=== PATIENT | male | born 1960 | race Caucasian/White ===

== ENCOUNTER 2018-04-28 09:50 | Outpatient (CLI) | payer MEDICARE, SELFPAY ==
[2018-04-28 10:30] LABS: HCT 41.7 % (40.0-50.0); HGB 14.1 g/dL (13.5-17.5); Mean Corp. HGB Concentration 33.8 g/dL (32.0-36.0); Mean Corpuscular Volume 94.6 fL (80-95); Mean Platelet Volume 9.4 fL (8.0-11.0); Platelet Count 167 x1000/uL (130-400); RBC 4.41 m/cumm (4.50-6.00); RBC Distribution Width 12.2 % (11.8-14.1); White Blood Cell Count 5.33 k/cumm (4.4-10.8)
[2018-04-28 11:41] LABS: ALT 24 U/L (12-78); AST 19 U/L (15-37); Albumin 3.5 g/dL (3.4-5.0); Alkaline Phosphatase 61 U/L (46-116); Anion Gap 5.9 mmol/L (3-11); BUN 11 mg/dL (7-18); Bilirubin, Total 0.3 mg/dL (0.2-1.0); CO2 33.1 mmol/L (21.0-32.0); CREATININE 0.89 mg/dL (0.70-1.30); Calcium 8.9 mg/dL (8.5-10.1); Chloride 105 mmol/L (98-107); Cholesterol 149 mg/dL (50-200); Ferritin 160 ng/mL (8-388); Glucose 100 mg/dL (70-100); HDL Cholesterol 39 mg/dL (40-60); LDL CHOLESTEROL 97 mg/dL (<100); Potassium 4.7 mmol/L (3.5-5.1); Sodium 144 mmol/L (136-145); Total Protein 6.5 g/dL (6.4-8.2); Triglyceride 65 mg/dL (30-150)
== END 2018-04-28 10:10 ==
PROVIDERS: Visit Provider Nurse Practitioner
DX: E78.5 Hyperlipidemia, unspecified (principal); R71.8 Other abnormality of red blood cells; I10 Essential (primary) hypertension; G25.81 Restless legs syndrome
CPT/HCPCS: 36415; 80053; 80061; 83721; 85027; 82728

== ENCOUNTER 2018-06-27 10:15 | Emergency (ER) | payer OTHER, SELFPAY ==
[2018-06-27 10:28] VITALS: BP 134/73; PULSE 55; RESP 16; TEMP 37; O2SAT 96
[2018-06-27 11:10] LABS: Bilirubin Negative (Negative); Blood Trace-intact (Negative); Clarity Clear; Glucose Negative (Negative); Ketones Negative (Negative); Leukocyte Esterase Negative (Negative); Nitrite Negative (Negative); Urobilinogen 0.2 EU/dL (Up TO 0.2)
[2018-06-27 11:22] LABS: Bacteria Negative HPF (Negative); C & S Indicated? No; Casts Negative LPF (Negative); Crystals Few Amorphous HPF (Negative); Epithelial Cells Rare HPF (Negative); Mucus Negative (Negative); Other Cells Rare Renal (Negative); WBC Negative HPF (0-5)
--- NOTE | 2018-06-27 11:35 | W.ED.GENAD ---
Discharge Plan Disposition Patient Disposition: HOME Discharge Details Chief Complaint: Abd Prob Clinical Impression: Hernia, inguinal, right, Hematuria Primary Care Provider: None,None ED Provider: Raz Boone Home Meds and New Rx's Prescriptions: Continued gabapentin 800 mg Tablet 800 mg PO TID RF: 0 baclofen 10 mg Tablet 20 mg PO RF: 0 aspirin 81 mg Tablet,Chewable 1 tab PO DAILY RF: 0 pramipexole 0.75 mg Tablet 0.75 mg PO DAILY RF: 0 Discharge Instructions Instructions: Inguinal Hernia (ED), Hematuria (ED) Additional Instructions: You had a small fat-containing inguinal hernia on the right side. Please follow-up with general surgery. Call today to arrange follow-up. You had a small amount of blood in your urine. Please contact your primary care physician to arrange follow-up. You may need additional testing. Return to the ER for any worsening or new concerning symptoms. Referrals: Rubi Abdullahi MD [ [facility] STAFF PHYSICIAN] - Medical Decision Making 11:39 --58-year-old male presents with 3-4 days of right lower abdomen and groin pain, recent bulging in his right groin. Tender palpation right lower quadrant over McBurney's point. He does have a direct inguinal hernia that is present with Valsalva and cough only. Plan to CT abdomen pelvis to assess for acute surgical pathology. 13:52 --CT of the abdomen and pelvis interpreted by radiology: Normal appendix, no acute process, small fat-containing right inguinal hernia noted. Labs reviewed and nondiagnostic. Plan is to have the patient follow-up with general surgery. Encouraged him to return for any worsening or new concerning symptoms. HPI General Mode of arrival: ambulatory. Date/Time Provider Initiated Documentation: 06/27/18 11:05. Limitations to Documentation: no limitations. Information obtained by: patient and family. HPI Narrative: 58yo m presents with chief complaint of abdominal pain. Patient notes pain in his right lower abdomen and groin for the past 3-4 days. Pain has been severe and is currently mild. Pain feels like an ache. Patient's noted a bulge in his right groin a couple days ago and is concerned about hernia. He has had associated anorexia. He did have some vomiting a few nights ago. No loose stool, no dysuria, no hematuria. No fever. Related Data Home Medications Medication Instructions Recorded Confirmed aspirin 1 tab PO DAILY 06/27/18 06/27/18 baclofen 20 mg PO 06/27/18 gabapentin 800 mg PO TID 06/27/18 06/27/18 pramipexole 0.75 mg PO DAILY 06/27/18 06/27/18 Allergies Allergy/AdvReac Type Severity Reaction Status Date / Time phenobarbital Allergy Unverified 06/27/18 10:32 bees Allergy Uncoded 06/27/18 10:32 General Stated Complaint: Abd Prob QUINN: 3 Review of Systems Review of Systems All systems reviewed & are unremarkable except as noted in HPI and below Gastrointestinal Reports abdominal pain and Reports nausea Genitourinary Reports as per HPI PFSH Social History Smoking/Tobacco Use Status: Never Exam Const General: cooperative and no acute distress HENMT Head: normocephalic and atraumatic Mouth: moist mucous membranes Eyes Conjunctivae: normal conjunctivae Sclera: normal sclerae EOM: EOM intact bilaterally Neck Neck: trachea midline and supple Resp Auscultation: clear to auscultation bilaterally, no rales, no rhonchi and no wheezes Cardio Jugular venous pressure: no JVD Rate: regular rate and not tachycardic Rhythm: regular rhythm GI Inspection: no visible herniation Palpation: soft, not firm, no guarding, no masses, not rigid and tender in the RLQ and suprapubicly (Right) Auscultation: normal bowel sounds Other: Right direct inguinal hernia on coughing that reduces spontaneously, no tenderness inguinal canal Skin General skin exam: no rashes or lesions noted Neuro General: alert, awake, oriented x3 and tone normal Extrem General: no edema Psych Appearance: grossly normal Mental Status: mental status grossly normal Speech and Movement: speech and movement normal Course Vital Signs Temperature 37 C 06/27/18 10:28 Pulse 55 L 06/27/18 10:28 Respiratory Rate 16 06/27/18 10:28 Blood Pressure 134/73 06/27/18 10:28 Pulse Oximetry 96 06/27/18 10:28 Temperature 37 C 06/27/18 10:28 Temperature Source Skin 06/27/18 10:28 Pulse 55 L 06/27/18 10:28 Respiratory Rate 16 06/27/18 10:28 Respiratory Effort Non-Labored 06/27/18 10:28 Blood Pressure 134/73 06/27/18 10:28 Blood Pressure Position Sitting 06/27/18 10:28 Pulse Oximetry 96 06/27/18 10:28 Oxygen Delivery Method Room Air 06/27/18 10:28 Oxygen Flow Rate 0 06/27/18 10:28 Pain Level 6 06/27/18 10:28 Lab/Test Results Lab/Test Results: Laboratory Tests Range/Units 06/27/18 11:05 Urine Color (Yellow) Yellow Urine Clarity Clear Urine pH (5-8) 7.0 Ur Specific [place] (1.005-1.025) 1.020 Urine Protein (Negative) mg/dL Negative Urine Ketones (Negative) mg/dL Negative Urine Blood (Negative) Trace-intact H Urine Nitrite (Negative) Negative Urine Bilirubin (Negative) Negative Urine Urobilinogen (Up TO 0.2) EU/dL 0.2 Ur Leukocyte Esterase (Negative) Negative Urine RBC (0-2) 3-5 H Urine WBC (0-5) HPF Negative Ur Epithelial Cells (Negative) HPF Rare Urine Crystals (Negative) HPF Few amorphous Urine Bacteria (Negative) HPF Negative Urine Casts (Negative) LPF Negative Urine Mucus (Negative) Negative Urine Other (Negative) Rare renal Ur Culture Indicated? No Urine Glucose (Negative) mg/dL Negative
--- NOTE | 2018-06-27 11:40 | ED.GENADUL_ITS ---
Discharge Plan Disposition Patient Disposition: HOME Discharge Details Chief Complaint: Abd Prob Clinical Impression: Hernia, inguinal, right, Hematuria Primary Care Provider: None,None ED Provider: Raz Boone Home Meds and New Rx's Prescriptions: Continued gabapentin 800 mg Tablet 800 mg PO TID RF: 0 baclofen 10 mg Tablet 20 mg PO RF: 0 aspirin 81 mg Tablet,Chewable 1 tab PO DAILY RF: 0 pramipexole 0.75 mg Tablet 0.75 mg PO DAILY RF: 0 Discharge Instructions Instructions: Inguinal Hernia (ED), Hematuria (ED) Additional Instructions: You had a small fat-containing inguinal hernia on the right side. Please follow- up with general surgery. Call today to arrange follow-up. You had a small amount of blood in your urine. Please contact your primary care physician to arrange follow-up. You may need additional testing. Return to the ER for any worsening or new concerning symptoms. Referrals: Rubi Abdullahi MD [ [facility] STAFF PHYSICIAN] - Medical Decision Making 11:39 --58-year-old male presents with 3-4 days of right lower abdomen and groin pain, recent bulging in his right groin. Tender palpation right lower quadrant over McBurney's point. He does have a direct inguinal hernia that is present with Valsalva and cough only. Plan to CT abdomen pelvis to assess for acute surgical pathology. 13:52 --CT of the abdomen and pelvis interpreted by radiology: Normal appendix, no acute process, small fat-containing right inguinal hernia noted. Labs reviewed and nondiagnostic. Plan is to have the patient follow-up with general surgery. Encouraged him to return for any worsening or new concerning symptoms. HPI General Mode of arrival: ambulatory . Date/Time Provider Initiated Documentation: 06/27/18 11:05 . Limitations to Documentation: no limitations . Information obtained by: patient and family . HPI Narrative: 58yo m presents with chief complaint of abdominal pain. Patient notes pain in his right lower abdomen and groin for the past 3-4 days. Pain has been severe and is currently mild. Pain feels like an ache. Patient's noted a bulge in his right groin a couple days ago and is concerned about hernia. He has had associated anor exia. He did have some vomiting a few nights ago. No loose stool, no dysuria, no hematuria. No fever. Related Data Home Medications Medication Instructions Recorded Confirmed aspirin 1 tab PO DAILY 06/27/18 06/27/18 baclofen 20 mg PO 06/27/18 gabapentin 800 mg PO TID 06/27/18 06/27/18 pramipexole 0.75 mg PO DAILY 06/27/18 06/27/18 Allergies Allergy/AdvReac Type Severity Reaction Status Date / Time phenobarbital Allergy Unverified 06/27/18 10:32 bees Allergy Uncoded 06/27/18 10:32 General Stated Complaint: Abd Prob QUINN: 3 Review of Systems Review of Systems All systems reviewed & are unremarkable except as noted in HPI and below Gastrointestinal Reports abdominal pain and Reports nausea Genitourinary Reports as per HPI PFSH Social History Smoking/Tobacco Use Status: Never Exam Const General: cooperative and no acute distress HENMT Head: normocephalic and atraumatic Mouth: moist mucous membranes Eyes Conjunctivae: normal conjunctivae Sclera: normal sclerae EOM: EOM intact bilaterally Neck Neck: trachea midline and supple Resp Auscultation: clear to auscultation bilaterally, no rales, no rhonchi and no wheezes Cardio Jugular venous pressure: no JVD Rate: regular rate and not tachycardic Rhythm: regular rhythm GI Inspection: no visible herniation Palpation: soft, not firm, no guarding, no masses, not rigid and tender in the RLQ and suprapubicly (Right) Auscultation: normal bowel sounds Other: Right direct inguinal hernia on coughing that reduces spontaneously, no tenderness inguinal canal Skin General skin exam: no rashes or lesions noted Neuro General: alert, awake, oriented x3 and tone normal Extrem General: no edema Psych Appearance: grossly normal Mental Status: mental status grossly normal Speech and Movement: speech and movement normal Course Vital Signs Temperature 37 C 06/27/18 10:28 Pulse 55 L 06/27/18 10:28 Respiratory Rate 16 06/27/18 10:28 Blood Pressure 134/73 06/27/18 10:28 Pulse Oximetry 96 06/27/18 10:28 Temperature 37 C 06/27/18 10:28 Temperature Source Skin 06/27/18 10:28 Pulse 55 L 06/27/18 10:28 Respiratory Rate 16 06/27/18 10:28 Respiratory Effort Non-Labored 06/27/18 10:28 Blood Pressure 134/73 06/27/18 10:28 Blood Pressure Position Sitting 06/27/18 10:28 Pulse Oximetry 96 06/27/18 10:28 Oxygen Delivery Method Room Air 06/27/18 10:28 Oxygen Flow Rate 0 06/27/18 10:28 Pain Level 6 06/27/18 10:28 Lab/Test Results Lab/Test Results: Laboratory Tests Range/Units 06/27/18 11:05 Urine Color (Yellow) Yellow Urine Clarity Clear Urine pH (5-8) 7.0 Ur Specific [place] (1.005-1.025) 1.020 Urine Protein (Negative) mg/dL Negative Urine Ketones (Negative) mg/dL Negative Urine Blood (Negative) Trace-intact H Urine Nitrite (Negative) Negative Urine Bilirubin (Negative) Negative Urine Urobilinogen (Up TO 0.2) EU/dL 0.2 Ur Leukocyte Esterase (Negative) Negative Urine RBC (0-2) 3-5 H Urine WBC (0-5) HPF Negative Ur Epithelial Cells (Negative) HPF Rare Urine Crystals (Negative) HPF Few amorphous Urine Bacteria (Negative) HPF Negative Urine Casts (Negative) LPF Negative Urine Mucus (Negative) Negative Urine Other (Negative) Rare renal Ur Culture Indicated? No Urine Glucose (Negative) mg/dL Negative
--- NOTE | 2018-06-27 11:54 | DI.CT_ITS ---
SYMPTOMS/DIAGNOSIS: RIGHT LOWER QUADRANT ABDOMINAL PAIN X 4 DAYS, ? INGUINAL HERNIA, ? APPENDICITIS CT SCAN OF THE ABDOMEN AND PELVIS: CT scan of the abdomen and pelvis was performed following the uneventful administration of intravenous and oral contrast material. There are no priors for comparison. Mild dependent atelectatic changes are seen in the lung bases. The liver is normal in size and appearance. No hepatic mass is seen. The portal and superior mesenteric veins are patent. The gallbladder is negative. No biliary or ductal dilatation is seen. No pancreatic mass or peripancreatic fluid collections are seen. The adrenal gland and spleen are unremarkable. The kidneys show normal enhancement. No solid mass or obstruction is seen. The urinary bladder is intact. The reproductive organs are unremarkable. There is atherosclerosis of the abdominal aorta, but no aneurysmal dilatation is present. No significant abdominal or pelvic adenopathy, ascites or pneumoperitoneum is present. The bowel shows no evidence of obstruction or inflammation. There is a normal appendix in the right lower quadrant. There is a fat- containing right inguinal hernia. Multilevel degenerative changes are seen in the spine resulting in central spinal canal stenosis at L3-4 and L4-L5. IMPRESSION: No evidence of an acute abdomen. Normal appendix. The findings were discussed with the Emergency Department on the date of the examination.
[2018-06-27] MEDS: Lactated Ringers 1,000 ML 125 ML IV (12:18)
[2018-06-27 12:24] LABS: Absolute Basophil Count 0.01 k/cumm (0.0-0.2); Absolute Eosinophil Count 0.08 k/cumm (0.0-0.7); Absolute Monocyte Count 0.39 k/cumm (0.11-0.7); Absolute Neutrophil Count 2.57 k/cumm (1.2-6.7); Basophils % 0.2; Eosinophils % 1.8; HCT 39.6 % (40.0-50.0); HGB 13.4 g/dL (13.5-17.5); Mean Corp. HGB Concentration 33.8 g/dL (32.0-36.0); Mean Corpuscular Hemoglobin 31.7 pg (27.0-33.0); Mean Corpuscular Volume 93.6 fL (80-95); Mean Platelet Volume 9.4 fL (8.0-11.0); Monocytes % 8.6; Neutrophils % 56.4; Platelet Count 131 x1000/uL (130-400); RBC 4.23 m/cumm (4.50-6.00); RBC Distribution Width 12.2 % (11.8-14.1); White Blood Cell Count 4.55 k/cumm (4.4-10.8)
[2018-06-27 12:39] LABS: Lactate 0.9 mmol/L (0.6-1.4)
[2018-06-27 12:40] LABS: ALT 23 U/L (12-78); AST 18 U/L (15-37); Albumin 3.3 g/dL (3.4-5.0); Alkaline Phosphatase 58 U/L (46-116); Anion Gap 5.2 mmol/L (3-11); BUN 9 mg/dL (7-18); Bilirubin, Total 0.3 mg/dL (0.2-1.0); CO2 31.8 mmol/L (21.0-32.0); CREATININE 0.85 mg/dL (0.70-1.30); Chloride 106 mmol/L (98-107); Glucose 95 mg/dL (70-100); Lipase 135 U/L (73-393); Sodium 143 mmol/L (136-145); Total Protein 6.7 g/dL (6.4-8.2)
[2018-06-27] MEDS: Omnipaque 350 MG/ML 100 ML BTL IV (13:36)
[2018-06-27 14:30] VITALS: BP 134/73; PULSE 55; RESP 16; O2SAT 96
== END 2018-06-27 14:32 | disposition home or self-care (01) ==
PROVIDERS: Emergency Provider Student in an Organized Health Care Education/Training Program
DX: K40.90 Unilateral inguinal hernia, without obstruction or gangrene, not specified as recurrent (principal); R31.9 Hematuria, unspecified
CPT/HCPCS: 36415; 80053; 83690; 96360; 96361; 99285; 74177; 81003; 81015; 83605; 85025; 99284; J3490

== ENCOUNTER 2018-07-25 09:41 | Inpatient (IN) | payer OTHER, SELFPAY ==
[2018-07-25] VITALS (30 sets, daily range): BP systolic 101–130; BP diastolic 54–71; PULSE 61–100; RESP 4–118; TEMP 36.5–39; O2SAT 88–99
--- NOTE | 2018-07-25 09:57 | NUR.NOTE ---
pt has has fever of 101+ for past 48 hrs and nausea. pt has not taken any med to alleviate this. NOTE pt has history of stroke with left sided weakness Nursing Note:
--- NOTE | 2018-07-25 10:24 | W.ED.GENAD ---
Discharge Plan Disposition Patient Disposition: [facility] INPATIENT Condition: Serious Discharge Details Chief Complaint: Fever Clinical Impression: Influenza, Hypoxia Reason For Visit: INFLUENZA A, ACUTE BRONCHITIS/COPD,HYPOXIA Admit Date/Time: 07/25/18 12:36 Admit Provider: Reema Saucedo Attending Provider: Reema Saucedo Primary Care Provider: None,None ED Provider: Dipak Murillo [facility] Course Hospital Course: Mr Gil is a 58 year old male with PMHx of CAD s/p MO/stent in 1997 and CABG x 3 in 2009 (in [place]), as well as prior CVA with residual L-sided weakness, hypertension, hyperlipidemia, who has an about 80 pack-year smoking history and continues to smoke, who was admitted to [facility] on 07/25/18 with an acute exacerbation of likely COPD (previously not diagnosed) due to Influenza A infection. He was initially mildly hypoxic, but this has quickly resolved. He was initiated on IV antibiotics for suspected bacterial bronchitis component of his presentation (azithromycin, rocephin, currently on Day 2), tamiflu, IV solumedrol, nebs. From the respiratory stand point, the patient improved rapidly - however, he reported an episode of lung pain to nursing this morning soon after receiving a nebulizer treatment. The patient now admits to also having an episode of this pain last night. His EKG reveals a RBBB with no priors available for comparison in our system. His troponin this morning was 0.02. His troponin rechecked at 14:45 is now 0.75. The patient is now chest pain free. He was loaded with asa, therapeutic lovenox. Case was discussed with [facility] cardiology, who recommended that the patient also be loaded with plavix. He was accepted in transfer by [facility] cardiology Dr Azar for anticipated cardiac cath. We appreciate the help of our [facility] colleagues and wish the patient well! Discharge Instructions Instructions: Acute Coronary Syndrome (DC), Influenza (DC), Acute Bronchitis (GEN), COPD (Chronic Obstructive Pulmonary Disease) (DC) Additional Instructions: You must stop smoking! Forms: Nursing Discharge Form Referrals: Giovana Brothers [ NON-[facility] STAFF PHYSICIAN] - 08/11/18 10:15 am Discharge Data Discharge Date/Time-TO BE ENTERED AT DEPARTURE: 07/25/18 13:00 Medical Decision Making Patient presenting the emergency department for chief complaint of fever and cough. Patient states that this started yesterday along with some nasal congestion, sore throat, and generalized body aches. Patient does state his significant other also has similar symptoms. Patient is ill in appearance, hypoxic on room air, febrile with temp of 39, and tachycardic. Patient has no signs of hypotension. Plan to check labs, give IV fluids, albuterol, chest x-ray and blood cultures. Concern for pneumonia versus influenza. Review of labs show no significant leukocytosis otherwise nondiagnostic labs but of notation is that patient is influenza positive. Chest x-ray reviewed along with speaking to radiologist and shows no acute infiltrates or infectious process. Patient reassessed and removed from oxygen that staff development coordinator placed on patient due to hypoxia. Patient had no improvement of hypoxia and remains 88% on room air. Patient has no primary care provider to follow-up with and I feel this is concerning that patient should be admitted. Tamiflu was ordered. Spoke with Dr. Saucedo who agreed to admit patient and had recommendation of IV Solu-Medrol x1 and for patient to be admitted HPI General Mode of arrival: ambulatory. Date/Time Provider Initiated Documentation: 07/25/18 10:00. Limitations to Documentation: no limitations. Information obtained by: RN notes reviewed. History of Present Illness 58 year old M presents to the emergency department with the chief complaint of fever, cough , described as moderate, with intensity rated at 8. Quality is described as aching (Generalized body aches), Patient started experiencing this day(s) (1) and it has been constant. No relieving factors improve symptom(s), No exacerbating factors reported . Patient did receive the following treatments prior to arrival, none Related Data Home Medications Medication Instructions Recorded Confirmed aspirin 1 tab PO DAILY 06/27/18 07/25/18 pramipexole 0.75 mg PO HS 06/27/18 07/25/18 atorvastatin 80 mg PO HS 07/25/18 07/25/18 baclofen 20 mg PO TID 07/25/18 07/25/18 gabapentin 300 mg PO TID 07/25/18 07/25/18 metoprolol tartrate [Lopressor] 50 mg PO BID 07/25/18 07/25/18 sertraline 200 mg PO DAILY 07/25/18 07/25/18 acetaminophen [Tylenol] 650 mg PO Q4H PRN PRN #0 tab 07/26/18 albuterol sulfate 2.5 mg UPD Q2H PRN PRN #0 ml 07/26/18 alum-mag hydroxide-simeth [Mag-Al 30 ml PO Q2H PRN PRN #0 ml 07/26/18 Plus] azithromycin [Zithromax] 500 mg IVPB Q24H #0 ea 07/26/18 benzonatate 100 mg PO TID #0 cap 07/26/18 docusate sodium [Colace] 100 mg PO TID PRN PRN #0 cap 07/26/18 enoxaparin 80 mg SUBCUT Q12H #0 ml 07/26/18 guaifenesin [Mucinex] 600 mg PO BID #0 tab 07/26/18 ipratropium-albuterol 3 ml UPD Q6H #0 ml 07/26/18 methylprednisolone sod suc(PF) 60 mg IVP BID #0 ea 07/26/18 [Solu-Medrol (PF)] nicotine 21 mg TRANSDERMAL DAILY #0 ea 07/26/18 oseltamivir [Tamiflu] 75 mg PO BID #0 cap 07/26/18 pantoprazole 40 mg PO DAILY@0730 #0 tab 07/26/18 polyethylene glycol 3350 17 g PO DAILY PRN PRN #0 ea 07/26/18 Previous Rx's Medication Instructions Recorded acetaminophen [Tylenol] 650 mg PO Q4H PRN PRN #0 tab 07/26/18 albuterol sulfate 2.5 mg UPD Q2H PRN PRN #0 ml 07/26/18 alum-mag hydroxide-simeth [Mag-Al 30 ml PO Q2H PRN PRN #0 ml 07/26/18 Plus] azithromycin [Zithromax] 500 mg IVPB Q24H #0 ea 07/26/18 benzonatate 100 mg PO TID #0 cap 07/26/18 docusate sodium [Colace] 100 mg PO TID PRN PRN #0 cap 07/26/18 enoxaparin 80 mg SUBCUT Q12H #0 ml 07/26/18 guaifenesin [Mucinex] 600 mg PO BID #0 tab 07/26/18 ipratropium-albuterol 3 ml UPD Q6H #0 ml 07/26/18 methylprednisolone sod suc(PF) 60 mg IVP BID #0 ea 07/26/18 [Solu-Medrol (PF)] nicotine 21 mg TRANSDERMAL DAILY #0 ea 07/26/18 oseltamivir [Tamiflu] 75 mg PO BID #0 cap 07/26/18 pantoprazole 40 mg PO DAILY@0730 #0 tab 07/26/18 polyethylene glycol 3350 17 g PO DAILY PRN PRN #0 ea 07/26/18 Allergies Allergy/AdvReac Type Severity Reaction Status Date / Time phenobarbital Allergy Unverified 07/25/18 10:00 bees Allergy Uncoded 07/25/18 10:00 General Stated Complaint: Fever QUINN: 3 Review of Systems Constitutional Reports body ache(s), Reports chills, Reports fever(s), Denies headache(s) and Reports malaise Eyes Denies eye discharge ENT Reports as per HPI, Denies ear discharge, Denies otalgia, Denies headache(s), Reports nasal congestion, Reports nasal discharge, Denies neck pain, Reports sinus pain, Reports sinus pressure, Reports sore throat and Denies throat swelling Cardiovascular Denies chest pain and Reports dyspnea Respiratory Reports cough and Reports dyspnea Gastrointestinal Denies abdominal pain, Denies diarrhea and Denies vomiting Musculoskeletal Denies joint swelling and Denies neck pain Integumentary/Breasts Denies rash Neurologic Denies headache(s) Allergic/Immunologic Denies throat swelling PFSH Medical History Ambulatory dysfunction (Chronic) CAD (coronary artery disease) (Chronic) CVA (cerebral vascular accident) (Chronic) Carotid stenosis (Chronic) Epilepsy (Chronic) History of heart attack (Chronic) Hypertension (Chronic) Tobacco abuse (Chronic) Surgical History H/O colonoscopy (Chronic) History of cardiac cath (Chronic) History of left-sided carotid endarterectomy (Chronic) Hx of tonsillectomy (Chronic) S/P CABG x 3 (Chronic) Social History Smoking/Tobacco Use Status: Current every day tobacco type: cigarettes quit status: not considering quitting counseling given: provider counseling alcohol intake: never substance use type: does not use Exam Const General: cooperative Orientation: alert and awake [facility] Head: normal to inspection, normocephalic and atraumatic Ears: hearing grossly normal bilaterally, TM's normal bilaterally, mastoids normal and TM abnormal bulging bilaterally, dull bilaterally and with loss of landmarks bilaterally General nose exam: external nose normal Face and sinus: normal facial exam, sinuses nontender and no erythema Mouth: oral mucosae normal, no drooling, no muffled voice and no trismus Throat: posterior oropharynx normal, tonsils normal and uvula midline Neck Neck: normal visual inspection, full ROM, no lymphadenopathy, no meningeal signs, trachea midline and supple Resp Effort & Inspection: normal respiratory effort, able to speak in complete sentences and cough Quality of cough: dry Auscultation: clear to auscultation bilaterally Cardio Rate: regular rate Rhythm: regular rhythm Heart Sounds: S1 normal, S2 normal, normal S1 and S2, no click, no gallops, no murmurs and no rubs Skin General skin exam: no rashes or lesions noted and dry skin (warm) Neuro General: alert, awake, oriented x3, gait normal and moves all extremities Cognition: normal cognition Speech: speech normal Course Vital Signs Temperature 39 C H 07/25/18 09:59 Pulse 94 H 07/25/18 09:59 Respiratory Rate 14 07/25/18 09:59 Blood Pressure 130/66 07/25/18 09:59 Pulse Oximetry 88 L 07/25/18 09:59 Temperature 39 C H 07/25/18 09:59 Temperature Source Skin 07/25/18 09:59 Pulse 94 H 07/25/18 09:59 Respiratory Rate 14 07/25/18 09:59 Blood Pressure 130/66 07/25/18 09:59 Pulse Oximetry 88 L 07/25/18 09:59 Oxygen Delivery Method Room Air 07/25/18 09:59 Oxygen Flow Rate 0 07/25/18 09:59 Pain Level 0 07/25/18 09:59 Lab/Test Results Lab/Test Results: 07/25/18 10:21 Blood Blood Culture - Pending 07/25/18 10:21 Blood Blood Culture - Pending 07/25/18 10:22 Nasopharynx Influenza Types A,B Antigen - Pending
[2018-07-25] MEDS: Normal Saline 1,000 ML 1000 ML IV (10:35)
[2018-07-25] MEDS: Albuterol/Ipratropium 3 ML UPD VIAL UPD ×3 (10:35→23:53)
--- NOTE | 2018-07-25 10:36 | ED.GENADUL_ITS ---
Discharge Plan Disposition Patient Disposition: [facility] INPATIENT Condition: Serious Discharge Details Chief Complaint: Fever Clinical Impression: Influenza, Hypoxia Reason For Visit: INFLUENZA A, ACUTE BRONCHITIS/COPD,HYPOXIA Admit Date/Time: 07/25/18 12:36 Admit Provider: Reema Saucedo Attending Provider: Reema Saucedo Primary Care Provider: None,None ED Provider: Dipak Murillo [facility] Course Hospital Course: Mr Gil is a 58 year old male with PMHx of CAD s/p [place]/stent in 1997 and CABG x 3 in 2009 (in [place]), as well as prior CVA with residual L-sided weakness, hypertension, hyperlipidemia, who has an about 80 pack-year smoking history and continues to smoke, who was admitted to [facility] on 07/25/18 with an acute exacerbation of likely COPD (previously not diagnosed) due to Influenza A infection. He was initially mildly hypoxic, but this has quickly resolved. He was initiated on IV antibiotics for suspected bacterial bronchitis component of his presentation (azithromycin, rocephin, currently on Day 2), tamiflu, IV solumedrol, nebs. From the respiratory stand point, the patient improved rapidly - however, he reported an episode of lung pain to nursing this morning soon after receiving a nebulizer treatment. The patient now admits to also having an episode of this pain last night. His EKG reveals a RBBB with no priors available for comparison in our system. His troponin this morning was 0.02. His troponin rechecked at 14:45 is now 0.75. The patient is now chest pain free. He was loaded with asa, therapeutic lovenox. Case was discussed with [facility] cardiology, who recommended that the patient also be loaded with plavix. He was accepted in transfer by [facility] cardiology Dr Azar for anticipated cardiac cath. We appreciate the help of our [facility] colleagues and wish the patient well! Discharge Instructions Instructions: Acute Coronary Syndrome (DC), Influenza (DC), Acute Bronchitis (GEN), COPD (Chronic Obstructive Pulmonary Disease) (DC) Additional Instructions: You must stop smoking! Forms: Nursing Discharge Form Referrals: Giovana Brothers [ NON-[facility] STAFF PHYSICIAN] - 08/11/18 10:15 am Discharge Data Discharge Date/Time-TO BE ENTERED AT DEPARTURE: 07/25/18 13:00 Medical Decision Making Patient presenting the emergency department for chief complaint of fever and cough. Patient states that this started yesterday along with some nasal congestion, sore throat, and generalized body aches. Patient does state his significant other also has similar symptoms. Patient is ill in appearance, hyp oxic on room air, febrile with temp of 39, and tachycardic. Patient has no signs of hypotension. Plan to check labs, give IV fluids, albuterol, chest x- ray and blood cultures. Concern for pneumonia versus influenza. Review of labs show no significant leukocytosis otherwise nondiagnostic labs but of notation is that patient is influenza positive. Chest x-ray reviewed along with speaking to radiologist and shows no acute infiltrates or infectious process. Patient reassessed and removed from oxygen that staffing consultant placed on patient due to hypoxia. Patient had no improvement of hypoxia and remains 88% on room air. Patient has no primary care provider to follow-up with and I feel this is concerning that patient should be admitted. Tamiflu was ordered. Spoke with Dr. Saucedo who agreed to admit patient and had recommendation of IV Solu-Medrol x1 and for patient to be admitted HPI General Mode of arrival: ambulatory . Date/Time Provider Initiated Documentation: 07/25/18 10:00 . Limitations to Documentation: no limitations . Information obtained by: RN notes reviewed . History of Present Illness 58 year old M presents to the emergency department with the chief complaint of fever, cough , described as moderate, with intensity rated at 8. Quality is described as aching (Generalized body aches), Patient started experiencing this day(s) (1) and it has been constant. No relieving factors improve symptom(s), No exacerbating factors reported . Patient did receive the following treatments prior to arrival, none Related Data Home Medications Medication Instructions Recorded Confirmed aspirin 1 tab PO DAILY 06/27/18 07/25/18 pramipexole 0.75 mg PO HS 06/27/18 07/25/18 atorvastatin 80 mg PO HS 07/25/18 07/25/18 baclofen 20 mg PO TID 07/25/18 07/25/18 gabapentin 300 mg PO TID 07/25/18 07/25/18 metoprolol tartrate [Lopressor] 50 mg PO BID 07/25/18 07/25/18 sertraline 200 mg PO DAILY 07/25/18 07/25/18 acetaminophen [Tylenol] 650 mg PO Q4H PRN PRN #0 tab 07/26/18 albuterol sulfate 2.5 mg UPD Q2H PRN PRN #0 ml 07/26/18 alum-mag hydroxide-simeth [Mag-Al 30 ml PO Q2H PRN PRN #0 ml 07/26/18 Plus] azithromycin [Zithromax] 500 mg IVPB Q24H #0 ea 07/26/18 benzonatate 100 mg PO TID #0 cap 07/26/18 docusate sodium [Colace] 100 mg PO TID PRN PRN #0 cap 07/26/18 enoxaparin 80 mg SUBCUT Q12H #0 ml 07/26/18 guaifenesin [Mucinex] 600 mg PO BID #0 tab 07/26/18 ipratropium-albuterol 3 ml UPD Q6H #0 ml 07/26/18 methylprednisolone sod suc(PF) 60 mg IVP BID #0 ea 07/26/18 [Solu-Medrol (PF)] nicotine 21 mg TRANSDERMAL DAILY #0 ea 07/26/18 oseltamivir [Tamiflu] 75 mg PO BID #0 cap 07/26/18 pantoprazole 40 mg PO DAILY@0730 #0 tab 07/26/18 polyethylene glycol 3350 17 g PO DAILY PRN PRN #0 ea 07/26/18 Previous Rx's Medication Instructions Recorded acetaminophen [Tylenol] 650 mg PO Q4H PRN PRN #0 tab 07/26/18 albuterol sulfate 2.5 mg UPD Q2H PRN PRN #0 ml 07/26/18 alum-mag hydroxide-simeth [Mag-Al 30 ml PO Q2H PRN PRN #0 ml 07/26/18 Plus] azithromycin [Zithromax] 500 mg IVPB Q24H #0 ea 07/26/18 benzonatate 100 mg PO TID #0 cap 07/26/18 docusate sodium [Colace] 100 mg PO TID PRN PRN #0 cap 07/26/18 enoxaparin 80 mg SUBCUT Q12H #0 ml 07/26/18 guaifenesin [Mucinex] 600 mg PO BID #0 tab 07/26/18 ipratropium-albuterol 3 ml UPD Q6H #0 ml 07/26/18 methylprednisolone sod suc(PF) 60 mg IVP BID #0 ea 07/26/18 [Solu-Medrol (PF)] nicotine 21 mg TRANSDERMAL DAILY #0 ea 07/26/18 oseltamivir [Tamiflu] 75 mg PO BID #0 cap 07/26/18 pantoprazole 40 mg PO DAILY@0730 #0 tab 07/26/18 polyethylene glycol 3350 17 g PO DAILY PRN PRN #0 ea 07/26/18 Allergies Allergy/AdvReac Type Severity Reaction Status Date / Time phenobarbital Allergy Unverified 07/25/18 10:00 bees Allergy Uncoded 07/25/18 10:00 General Stated Complaint: Fever QUINN: 3 Review of Systems Constitutional Reports body ache(s), Reports chills, Reports fever(s), Denies headache(s) and Reports malaise Eyes Denies eye discharge ENT Reports as per HPI, Denies ear discharge, Denies otalgia, Denies headache(s), Reports nasal congestion, Reports nasal discharge, Denies neck pain, Reports sinus pain, Reports sinus pressure, Reports sore throat and Denies throat swelling Cardiovascular Denies chest pain and Reports dyspnea Respiratory Reports cough and Reports dyspnea Gastrointestinal Denies abdominal pain, Denies diarrhea and Denies vomiting Musculoskeletal Denies joint swelling and Denies neck pain Integumentary/Breasts Denies rash Neurologic Denies headache(s) Allergic/Immunologic Denies throat swelling PFSH Medical History Ambulatory dysfunction (Chronic) CAD (coronary artery disease) (Chronic) CVA (cerebral vascular accident) (Chronic) Carotid stenosis (Chronic) Epilepsy (Chronic) History of heart attack (Chronic) Hypertension (Chronic) Tobacco abuse (Chronic) Surgical History H/O colonoscopy (Chronic) History of cardiac cath (Chronic) History of left-sided carotid endarterectomy (Chronic) Hx of tonsillectomy (Chronic) S/P CABG x 3 (Chronic) Social History Smoking/Tobacco Use Status: Current every day tobacco type: cigarettes quit status: not considering quitting counseling given: provider counseling alcohol intake: never substance use type: does not use Exam Const General: cooperative Orientation: alert and awake HENWI Head: normal to inspection, normocephalic and atraumatic Ears: hearing grossly normal bilaterally, TM's normal bilaterally, mastoids normal and TM abnormal bulging bilaterally, dull bilaterally and with loss of landmarks bilaterally General nose exam: external nose normal Face and sinus: normal facial exam, sinuses nontender and no erythema Mouth: oral mucosae normal, no drooling, no muffled voice and no trismus Throat: posterior oropharynx normal, tonsils normal and uvula midline Neck Neck: normal visual inspection, full ROM, no lymphadenopathy, no meningeal signs, trachea midline and supple Resp Effort & Inspection: normal respiratory effort, able to speak in complete sentences and cough Quality of cough: dry Auscultation: clear to auscultation bilaterally Cardio Rate: regular rate Rhythm: regular rhythm Heart Sounds: S1 normal, S2 normal, normal S1 and S2, no click, no gallops, no murmurs and no rubs Skin General skin exam: no rashes or lesions noted and dry skin (warm) Neuro General: alert, awake, oriented x3, gait normal and moves all extremities Cognition: normal cognition Speech: speech normal Course Vital Signs Temperature 39 C H 07/25/18 09:59 Pulse 94 H 07/25/18 09:59 Respiratory Rate 14 07/25/18 09:59 Blood Pressure 130/66 07/25/18 09:59 Pulse Oximetry 88 L 07/25/18 09:59 Temperature 39 C H 07/25/18 09:59 Temperature Source Skin 07/25/18 09:59 Pulse 94 H 07/25/18 09:59 Respiratory Rate 14 07/25/18 09:59 Blood Pressure 130/66 07/25/18 09:59 Pulse Oximetry 88 L 07/25/18 09:59 Oxygen Delivery Method Room Air 07/25/18 09:59 Oxygen Flow Rate 0 07/25/18 09:59 Pain Level 0 07/25/18 09:59 Lab/Test Results Lab/Test Results: 07/25/18 10:21 Blood Blood Culture - Pending 07/25/18 10:21 Blood Blood Culture - Pending 07/25/18 10:22 Nasopharynx Influenza Types A,B Antigen - Pending
[2018-07-25] MEDS: Acetaminophen 500 MG TAB (10:57)
[2018-07-25 11:02] LABS: Absolute Lymphocyte Count 0.44 k/cumm (1.2-3.4); Absolute Monocyte Count 0.35 k/cumm (0.11-0.7); Absolute Neutrophil Count 4.36 k/cumm (1.2-6.7); HCT 42.7 % (40.0-50.0); HGB 14.3 g/dL (13.5-17.5); Lymphocytes % 8.5; Mean Corp. HGB Concentration 33.5 g/dL (32.0-36.0); Mean Corpuscular Hemoglobin 31.6 pg (27.0-33.0); Mean Corpuscular Volume 94.3 fL (80-95); Mean Platelet Volume 9.9 fL (8.0-11.0); Monocytes % 6.8; Neutrophils % 84.7; Platelet Count 110 x1000/uL (130-400); RBC 4.53 m/cumm (4.50-6.00); RBC Distribution Width 13.2 % (11.8-14.1); White Blood Cell Count 5.15 k/cumm (4.4-10.8)
[2018-07-25 11:10] LABS: ALT 29 U/L (12-78); AST 61 U/L (15-37); Albumin 3.5 g/dL (3.4-5.0); Alkaline Phosphatase 54 U/L (46-116); Anion Gap 8.7 mmol/L (3-11); BUN 16 mg/dL (7-18); Bilirubin, Total 0.5 mg/dL (0.2-1.0); CO2 28.3 mmol/L (21.0-32.0); CREATININE 1.11 mg/dL (0.70-1.30); Chloride 101 mmol/L (98-107); Glucose 122 mg/dL (70-100); Potassium 3.7 mmol/L (3.5-5.1); Sodium 138 mmol/L (136-145); Total Protein 7.4 g/dL (6.4-8.2)
[2018-07-25] MEDS: Albuterol 2.5 MG/3 ML INH SOLN VIAL UPD (11:46)
--- NOTE | 2018-07-25 12:09 | DI.RAD_ITS ---
SYMPTOM/DIAGNOSIS: COUGH, FEVER PA AND LATERAL CHEST: There are no prior comparison exams. The heart size is normal. The patient is status post CABG. No infiltrate, effusion or pulmonary edema is seen. There has been surgical resections of the distal lines of both clavicles. IMPRESSION: No acute abnormality.
--- NOTE | 2018-07-25 12:20 | PDOC.ERCMPRO ---
Care Management Progress Note 07/25-Sarmad does not have a local PCP. He will be admitted to the hospital for influenza. Giovana Catalan from [facility] is data migration consultant. Reported off to inpatient [facility] for patient to have a f/u on discharge from hospital. Sarmad moved to [place] from [place] in February and has not had a local PCP since. 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 Patient did go to physical therapy in May 2018 for multiple falls at home. Patient stopped PT as he did not feel it helped.
--- NOTE | 2018-07-25 12:24 | CMPROGNOTE_ITS ---
Care Management Progress Note 07/25-Sarmad does not have a local PCP. He will be admitted to the hospital for influenza. Giovana Catalan from [facility] is ultrasonic hand solderer. Reported off to inpatient [facility] for patient to have a f/u on discharge from hospital. Sarmad moved to [place] from [place] in February and has not had a local PCP since. 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 Patient did go to physical therapy in May 2018 for multiple falls at home. Patient stopped PT as he did not feel it helped.
[2018-07-25] MEDS: methylPREDNISolone SUCC 125 MG VIAL IVP (12:49)
[2018-07-25] MEDS: Benzonatate 100 MG CAP PO ×2 (14:29→19:44)
[2018-07-25] MEDS: Enoxaparin 40 MG/0.4 ML SYR SC (14:29)
--- NOTE | 2018-07-25 16:45 | W.PM.HP.N ---
Date of service: 07/25/18 Time of Service: 16:45 Assessment and Plan (1) Influenza A: Current visit: Yes Status: Acute Continue tamiflu started in the ED (2) Acute bronchitis: Current visit: Yes Status: Acute Based on patient's description of the sputum, it appears he has a bacterial superinfection. No evidence of PNA on CXR, though the patient is dehydrated. Start azithromycin, rocephin, and obtain sputum cultures. Start steroids, nebs for the bronchospastic component. (3) Hypoxia: Current visit: Yes Status: Acute Likely due to above in addition to suspected acute exacerbation of COPD. Treat Flu A/acute bronchitis. Wean as tolerated. (4) Acute exacerbation of chronic obstructive pulmonary disease (COPD): Current visit: Yes Status: Suspected The patient does not have a diagnosis of COPD, but does have a 45 pack-year smoking history (naturally, he was advised to quit; refuses any nicotine replacement). Treat as a COPD exacerbation (antibiotics, steroids, nebs). Will need outpatient PFT's (5) Dehydration: Current visit: Yes Status: Acute Continue IVF (6) CAD (coronary artery disease): Current visit: Yes Status: Chronic No evidence of ACS on admission. Continue home therapy. (7) Hyperlipidemia: Current visit: Yes Status: Acute Continue atorvastatin (8) Hypertension: Current visit: Yes Status: Chronic Continue metoprolol (9) Ambulatory dysfunction: Current visit: Yes Status: Acute PT/OT consults (10) Discharge planning issues: Current visit: Yes Status: Acute Full code (11) DVT prophylaxis: Current visit: Yes Status: Acute Lovenox History of Present Illness Chief Complaint: I don't feel well Narrative: Mr Gil is a 58 year old male with PMHx of CAD s/p [place], stent and CABG x 3 (CABG in 2009), CVA in 2007 with residual LUE/LLE deficit, Hypertension, hyperlipidemia, and epilepsy, who is visiting [place] from [place] where he normally lives to help a friend who is undergoing chemotherapy, who presented to [facility] ED today complaining of a headache and feeling generally ill. The symptoms started yesterday and included subjective fevers, chills, bodyaches, headache, cough productive of yellow sputum, nausea, and vomiting. He specifically denied having shortness of breath. Upon arrival to [facility] ED, his O2 sats were noted to be 88% on RA at rest, desaturating lower than that with any activity. He tested positive for Flu A. He was found to be quite wheezy. He was given a bolus of IVF, tamiflu, albuterol, and tylenol for a temperature of 39 degrees celcius. The patient does not have a diagnosis of COPD and does not normally use oxygen. We were asked to admit the patient for further care. Of note, the patient does not remember his medications. He gets them filled at [facility] in [place], [place], as well as at [facility] in [facility]. He would like us to contact his pharmacies to find out his medications. Review of Systems Review of Systems 12 systems reviewed. Pertinent positives and negatives are as per HPI. PFSH Medical History Ambulatory dysfunction (Chronic) CAD (coronary artery disease) (Chronic) CVA (cerebral vascular accident) (Chronic) Carotid stenosis (Chronic) Epilepsy (Chronic) History of heart attack (Chronic) Hypertension (Chronic) Tobacco abuse (Chronic) Surgical History H/O colonoscopy (Chronic) History of cardiac cath (Chronic) History of left-sided carotid endarterectomy (Chronic) Hx of tonsillectomy (Chronic) S/P CABG x 3 (Chronic) Family History Father Heart disease Diabetes Hypertension Mother Pancreatic cancer Social History Smoking/Tobacco Use Status: Current every day tobacco type: cigarettes quit status: not considering quitting counseling given: provider counseling alcohol intake: never substance use type: does not use Meds Home Medications Medication Instructions Recorded Confirmed Type aspirin 1 tab PO DAILY 06/27/18 07/25/18 History baclofen 20 mg PO 06/27/18 History gabapentin 800 mg PO TID 06/27/18 07/25/18 History pramipexole 0.75 mg PO DAILY 06/27/18 07/25/18 History Allergies Allergy/AdvReac Type Severity Reaction Status Date / Time phenobarbital Allergy Unverified 07/25/18 10:00 bees Allergy Uncoded 07/25/18 10:00 Exam Narrative Exam Narrative: General: Middle aged male, appears ill and older than his stated age, laying in bed, not wearing O2, not tachypneic, not having respiratory difficulties Neurological: A&Ox3, LUE/LLE deficits and L facial weakness; no acute deficits Psychiatric: appropriate speech pattern/content Skin: no bruises/rashes; intact HEENT: EOMI, dry MM, clear oropharynx, no submandibular or cervical lymphadenopathy. No goiter or JVD Cardiovascular: RRR, no m/r/g Lungs: Wheezing on expiration B Gastrointestinal: abdomen soft, nontender, nondistended Genitourinary: deferred Extremities: no edema, clubbing, or cyanosis. B feet warm. +1 B pedal pulses. Results Imaging Additional studies: CXR: No acute abnormality. Labs : 07/25/18 10:44 07/25/18 10:44 Laboratory Results - last 24 hr 07/25/18 07/25/18 10:44 10:44 WBC 5.15 RBC 4.53 Hgb 14.3 Hct 42.7 MCV 94.3 MCH 31.6 MCHC 33.5 RDW 13.2 Plt Count 110 L MPV 9.9 Immature Gran % 0.0 Neutrophils % 84.7 Lymphocytes % 8.5 Monocytes % 6.8 Eosinophils % 0.0 Basophils % 0.0 Absolute Neutrophils 4.36 Absolute Lymphocytes 0.44 L Absolute Monocytes 0.35 Absolute Eosinophils 0.00 Absolute Basophils 0.00 Sodium 138 Potassium 3.7 Chloride 101 Carbon Dioxide 28.3 Anion Gap 8.7 BUN 16 Creatinine 1.11 Estimated GFR/1.73 m2 >= 60.00 Glucose 122 H Calcium 9.0 Total Bilirubin 0.5 AST 61 H ALT 29 Alkaline Phosphatase 54 Total Protein 7.4 Albumin 3.5 Last Vital Signs Temp 36.8 C 07/25/18 15:44 Pulse 61 07/25/18 15:44 Resp 20 07/25/18 15:44 BP 101/59 L 07/25/18 15:44 Pulse Ox 94 L 07/25/18 15:44
--- NOTE | 2018-07-25 17:09 | HPE_ITS ---
Date of service: 07/25/18 Time of Service: 16:45 Assessment and Plan (1) Influenza A: Current visit: Yes Status: Acute Continue tamiflu started in the ED (2) Acute bronchitis: Current visit: Yes Status: Acute Based on patient's description of the sputum, it appears he has a bacteri al superinfection. No evidence of PNA on CXR, though the patient is dehydrated. Start azithromycin, rocephin, and obtain sputum cultures. Start steroids, nebs for the bronchospastic component. (3) Hypoxia: Current visit: Yes Status: Acute Likely due to above in addition to suspected acute exacerbation of COPD. Treat Flu A/acute bronchitis. Wean as tolerated. (4) Acute exacerbation of chronic obstructive pulmonary disease (COPD): Current visit: Yes Status: Suspected The patient does not have a diagnosis of COPD, but does have a 45 pack- year smoking history (naturally, he was advised to quit; refuses any nicotine replacement). Treat as a COPD exacerbation (antibiotics, steroids, nebs). Will need outpatient PFT's (5) Dehydration: Current visit: Yes Status: Acute Continue IVF (6) CAD (coronary artery disease): Current visit: Yes Status: Chronic No evidence of ACS on admission. Continue home therapy. (7) Hyperlipidemia: Current visit: Yes Status: Acute Continue atorvastatin (8) Hypertension: Current visit: Yes Status: Chronic Continue metoprolol (9) Ambulatory dysfunction: Current visit: Yes Status: Acute PT/OT consults (10) Discharge planning issues: Current visit: Yes Status: Acute Full code (11) DVT prophylaxis: Current visit: Yes Status: Acute Lovenox History of Present Illness Chief Complaint: I don't feel well Narrative: Mr Gil is a 58 year old male with PMHx of CAD s/p [place], stent and CABG x 3 (CABG in 2009), CVA in 2007 wit h residual LUE/LLE deficit, Hypertension, hyperlipidemia, and epilepsy, who is visiting [place] from [place] where he normally lives to help a friend who is undergoing chemotherapy, who presented to [facility] ED today complaining of a headache and feeling generally ill. The symptoms started yesterday and included subjective fevers, chills, bodyaches, headache, cough productive of yellow sputum, nausea, and vomiting. He specifically denied having shortness of breath. Upon arrival to [facility] ED, his O2 sats were noted to be 88% on RA at rest, desaturating lower than that with any activity. He tested positive for Flu A. He was found to be quite wheezy. He was given a bolus of IVF, tamiflu, albuterol, and tylenol for a temperature of 39 degrees celcius. The patient does not have a diagnosis of COPD and does not normally use oxygen. We were asked to admit the patient for further care. Of note, the patient does not remember his medications. He gets them filled at [facility] in [place], [place], as well as at [facility] in [facility]. He would like us to contact his pharmacies to find out his medications. Review of Systems Review of Systems 12 systems reviewed. Pertinent positives and negatives are as per HPI. PFSH Medical History Ambulatory dysfunction (Chronic) CAD (coronary artery disease) (Chronic) CVA (cerebral vascular accident) (Chronic) Carotid stenosis (Chronic) Epilepsy (Chronic) History of heart attack (Chronic) Hypertension (Chronic) Tobacco abuse (Chronic) Surgical History H/O colonoscopy (Chronic) History of cardiac cath (Chronic) History of left-sided carotid endarterectomy (Chronic) Hx of tonsillectomy (Chronic) S/P CABG x 3 (Chronic) Family History Father Heart disease Diabetes Hypertension Mother Pancreatic cancer Social History Smoking/Tobacco Use Status: Current every day tobacco type: cigarettes quit status: not considering quitting counseling given: provider counseling alcohol intake: never substance use type: does not use Meds Home Medications Medication Instructions Recorded Confirmed Type aspirin 1 tab PO DAILY 06/27/18 07/25/18 History baclofen 20 mg PO 06/27/18 History gabapentin 800 mg PO TID 06/27/18 07/25/18 History pramipexole 0.75 mg PO DAILY 06/27/18 07/25/18 History Allergies Allergy/AdvReac Type Severity Reaction Status Date / Time phenobarbital Allergy Unverified 07/25/18 10:00 bees Allergy Uncoded 07/25/18 10:00 Exam Narrative Exam Narrative: General: Middle aged male, appears ill and older than his stated age, laying in bed, not wearing O2, not tachypneic, not having respiratory difficulties Neurological: A&Ox3, LUE/LLE deficits and L facial weakness; no acute deficits Psychiatric: appropriate speech pattern/content Skin: no bruises/rashes; intact HEENT: EOMI, dry MM, clear oropharynx, no submandibular or cervical lymphadenopathy. No goiter or JVD Cardiovascular: RRR, no m/r/g Lungs: Wheezing on expiration B Gastrointestinal: abdomen soft, nontender, nondistended Genitourinary: deferred Extremities: no edema, clubbing, or cyanosis. B feet warm. +1 B pedal pulses. Results Imaging Additional studies: CXR: No acute abnormality. Labs : 07/25/18 10:44 07/25/18 10:44 Laboratory Results - last 24 hr 07/25/18 07/25/18 10:44 10:44 WBC 5.15 RBC 4.53 Hgb 14.3 Hct 42.7 MCV 94.3 MCH 31.6 MCHC 33.5 RDW 13.2 Plt Count 110 L MPV 9.9 Immature Gran % 0.0 Neutrophils % 84.7 Lymphocytes % 8.5 Monocytes % 6.8 Eosinophils % 0.0 Basophils % 0.0 Absolute Neutrophils 4.36 Absolute Lymphocytes 0.44 L Absolute Monocytes 0.35 Absolute Eosinophils 0.00 Absolute Basophils 0.00 Sodium 138 Potassium 3.7 Chloride 101 Carbon Dioxide 28.3 Anion Gap 8.7 BUN 16 Creatinine 1.11 Estimated GFR/1.73 m2 >= 60.00 Glucose 122 H Calcium 9.0 Total Bilirubin 0.5 AST 61 H ALT 29 Alkaline Phosphatase 54 Total Protein 7.4 Albumin 3.5 Last Vital Signs Temp 36.8 C 07/25/18 15:44 Pulse 61 07/25/18 15:44 Resp 20 07/25/18 15:44 BP 101/59 L 07/25/18 15:44 Pulse Ox 94 L 07/25/18 15:44
[2018-07-25] MEDS: AZITHROMYCIN 500 MG in Normal Saline 250 ML 250 MG IVPB (18:29)
[2018-07-25] MEDS: Metoprolol 50 MG TAB PO (19:43)
[2018-07-25] MEDS: Oseltamivir 75 MG CAP PO (19:43)
[2018-07-25] MEDS: Baclofen 10 MG TAB 20 MG PO (19:44)
[2018-07-25] MEDS: Gabapentin 300 MG CAP PO (19:44)
[2018-07-25] MEDS: Budesonide/Formoterol 160/4.5 6 GM 60 PUFF INH IH (19:44)
[2018-07-25] MEDS: guaiFENesin 600 MG TABCR PO (19:44)
[2018-07-25] MEDS: methylPREDNISolone SUCC 125 MG VIAL 80 MG IVP (19:45)
[2018-07-25] MEDS: Normal Saline 1,000 ML 150 ML IV (21:23)
[2018-07-25] MEDS: Atorvastatin 40 MG TAB 80 MG PO (21:54)
[2018-07-25] MEDS: Pramipexole 0.25 MG TAB 0.75 MG PO (21:55)
[2018-07-26] VITALS (10 sets, daily range): BP systolic 105–126; BP diastolic 58–73; PULSE 67–105; RESP 4–18; TEMP 36.3–36.8; O2SAT 93–98
[2018-07-26] MEDS: Normal Saline 1,000 ML 150 ML IV ×2 (03:08→09:44)
[2018-07-26] MEDS: methylPREDNISolone SUCC 125 MG VIAL 80 MG IVP ×2 (04:05→12:07)
[2018-07-26] MEDS: Albuterol/Ipratropium 3 ML UPD VIAL UPD ×2 (05:35→17:43)
[2018-07-26] MEDS: Acetaminophen 325 MG TAB PO (06:20)
[2018-07-26 07:27] LABS: Abs Immature Grans 0.01 k/cumm (0.0-0.09); Absolute Lymphocyte Count 0.51 k/cumm (1.2-3.4); Absolute Monocyte Count 0.13 k/cumm (0.11-0.7); Absolute Neutrophil Count 4.51 k/cumm (1.2-6.7); HGB 13.4 g/dL (13.5-17.5); Immature Grans % 0.2; Lymphocytes % 9.9; Mean Corp. HGB Concentration 33.5 g/dL (32.0-36.0); Mean Corpuscular Hemoglobin 31.9 pg (27.0-33.0); Mean Corpuscular Volume 95.2 fL (80-95); Monocytes % 2.5; Neutrophils % 87.4; White Blood Cell Count 5.16 k/cumm (4.4-10.8)
[2018-07-26 07:44] LABS: Anion Gap 12.3 mmol/L (3-11); BUN 17 mg/dL (7-18); CO2 23.7 mmol/L (21.0-32.0); CREATININE 1.08 mg/dL (0.70-1.30); Calcium 8.5 mg/dL (8.5-10.1); Chloride 108 mmol/L (98-107); Glucose 149 mg/dL (70-100); Magnesium 1.6 mg/dL (1.8-2.4); Potassium 3.5 mmol/L (3.5-5.1); Sodium 144 mmol/L (136-145)
[2018-07-26 08:19] LABS: Platelet Count 93 x1000/uL (130-400)
[2018-07-26] MEDS: Baclofen 10 MG TAB 20 MG PO ×2 (08:39→14:20)
[2018-07-26] MEDS: Gabapentin 300 MG CAP PO ×2 (08:40→14:19)
[2018-07-26] MEDS: guaiFENesin 600 MG TABCR PO (08:40)
[2018-07-26] MEDS: Aspirin 81 MG CHEW PO (08:40)
[2018-07-26] MEDS: SERTRALINE 100 MG TAB 200 MG PO (08:40)
[2018-07-26] MEDS: Metoprolol 50 MG TAB PO (08:40)
[2018-07-26] MEDS: Pantoprazole 40 MG TABCR PO (08:40)
[2018-07-26] MEDS: Oseltamivir 75 MG CAP PO (08:41)
--- NOTE | 2018-07-26 08:59 | PHARADMIT ---
Admission Pharmacy Clinical Review\ influenza, acute bronchitis, COPD hypoxia Code Status Full Code Current Weight 76.5 kg Renally Cleared and Narrow Therapeutic Index Meds Crcl ~72.00 mL/min current meds okay QTc Value / Action Taken QTc 482 has azithromycin, albuterol, and formotorol ordered BP Control, Fever BP 105/63 afebrile Electrolytes reviewed Cl 108 mag 1.6 DVT Prophylaxis enoxaparin Opiate Usage / Scheduled Bowel Regimen Ordered no/prn Plt/SCr for Heparin / Enoxaparin plt 93 SCr 1.08 INR for Warfarin n/a H/H stable, WBC/Bands h/h 13.4/40.0 wbc 5.16 Antibiotic appropriateness ceftriaxone and azithromycin (today will be day 2) Cultures and Sensitivities rapid flu- positive for flu A antigen blood cultures pending Surgical ABX d/c within 24 hr n/a DM control / Insulin Dosing BG 149 none Heart Failure (Check EF%) (JOSE G's, B-Block, Diuretics) metoprolol IV to PO Switch n/a Home Meds Reviewed multiple MOLD BREAKER depressants: baclofen, gabapentin, pramipexole Home Meds Not Ordered all ordered Comments -pt. complained of lung pain post neb treatment per nursing report -pt. has steroids ordered for bronchitis/COPD exacerbation
[2018-07-26] MEDS: Benzonatate 100 MG CAP PO ×2 (10:25→14:20)
[2018-07-26] MEDS: Potassium Chloride 20 MEQ TABCR 40 MEQ PO (10:39)
[2018-07-26] MEDS: MAGNESIUM SULFATE 2 GM/50 ML BAG IVPB (10:39)
--- NOTE | 2018-07-26 10:49 | PDOC.CMIN ---
Care Management Initial Assess REASON FOR HOSPITALIZATION:: Influenza A, Acute Bronchitis/COPD, Hypoxia PAST MEDICAL HISTORY/PAST SURGICAL HISTORY:: Ambulatory dysfunction, CAD, Carotid stenosis, CVA with residual LUE/LLE deficit, Epilepsy, history of heart attack, hypertension, hyperlipidemia, tobacco abuse, colonscopy, cardiac cath, left sided carotid endarterectomy, tonsillectomy, CABGx3 PREVIOUS FUNCTIONAL STATUS/SOCIAL/FAMILY SUPPORTS:: Sarmad is currently relocating to [place] from [place] to help his significant other, June who is undergoing chemotherapy. He reports he no longer drives due to a stroke and is on disability income and currently unemployed. Sarmad shares his family and support system is all in [place], including two children and two grandchildren which he reports not seeing often, but speaking to on the phone. Sarmad reports June provides transportation, he is independent with all other ADLs. CURRENT FUNCTIONAL STATUS:: Sarmad was lying in bed, agreeable to CM meeting, he was pleasant in interaction and forthcoming with information. CM met with Sarmad again at RN request; Sarmad is requesting to leave AMA- left for June and provided patient information regarding AMA departure to support informed decision making and encouraged Sarmad to remain at [facility]. After CM spoke with June, Sarmad agreed to stay until MD discharged him. He was agreeable to Nicotene replacement as well; June reported Sarmad smokes 2PPD-Sarmad was provided a patch by Dr. Saucedo. ADVANCE DIRECTIVES:: None on file at [facility]. Has patient been provided with information about the portal?: Yes Did the patient sign up for the portal?: Yes ([email or web address]) CODE STATUS:: Full Code INSURANCE COVERAGE / FINANCIAL ISSUES:: Medicare CURRENT HOME/COMMUNITY SERVICES/EQUIPMENT:: Sarmad reports having only a cane. PRIMARY CARE PHYSICIAN:: [employer]; [facility] avionics systems engineer--coordinated by Manager Loss Prevention for follow up. POTENTIAL DISCHARGE NEEDS:: PCP assignment. PATIENT/FAMILY EDUCATION NEEDS:: Review discharge instructions, discuss Ask Me Three. AMA departure-issues with prescriptions, follow-up, etc. ANTICIPATED BARRIERS TO DISCHARGE:: AMA: Sarmad threatened to leave AMA; was able to de-escalate and remain at [facility] currently. TRANSPORTATION:: Via private vehicle. PLAN:: Sarmad will return home when ready per MD. He will be offered new PCP for follow up and transport via private vehicle with a friend. No additional services anticipated at this time.
--- NOTE | 2018-07-26 11:50 | OT.INIE ---
Occupational Therapy Notes Inpatient Occupational Therapy Evaluation Date: 07/26/18 Referring Doctor:Reema Saucedo MD OT Orders: Eval and Treat Precautions: Fall Risk, Drop let Precautions, Influenza PATIENT PROFILE/ADMITTING DIAGNOSIS: Pt was admitted through the ER on 07/25/18 for influenza, hypoxia, and possible tachycardia per ER report. Pt presented to ER with an 88% O2 with questionable acute bronchitis. Past Medical History: Influenza, CAD s/p [place], hyperlipidemia, HTN, CABGx3, CVA 2007 with (L) UE/LE tone/flaccid UE, Epilepsy. Social History/Home Situation: Pt reports that he lives in [place] at times throughout the year and is moving into an apartment today with his girlfriend who has been dx with cancer. He reports that he takes care of her and that she performs the driving. He does not report the set up of his new apartment however reports that his previous level of function is (I) all ADLs/IADLs except for driving. Equipment owned/DME: Pt reports that he utilizes a cane and has grab bars in the bathroom. SUBJECTIVE: Pt was sitting in bed when OT arrived. He was agreeable to OT session but reports at the end that he is not interested in any services. OBJECTIVE: General Observation: Flaccid (L) UE, IV (R) UE Mental Status: A&Ox3 Pain: no c/o pain ROM: RUE AROM WNL L UE Flaccid, pt denies any motion of his (L) UE at all and hold arm under the blankets. STRENGTH: RUE 4-/5 throughout LUE NT BALANCE: Static sitting Good Dynamic Sitting Good SPECIAL TESTS: Daily Activity Limitations Standardized Measure [facility] AM -PAC ?6 clicks? Daily Activity Inpatient Short Form: Raw score: 22 Standardized score: 47.10 CMS score: 25.80% CMS modifier: CJ INFORMED CONSENT/EDUCATION: Pt instructed in purpose of OT Consult and plan of care. ASSESSMENT: Patient is a 58-year-old male referred to occupational therapy services with diagnosis of influenza, hypoxia, and tachycardia present in the ER on 07/25/18. Patient presents with clinical signs and symptoms consistent with dx. Pt was seen for OT consult only he was agreeable to OT session and then reported I have had services for OT/PT multiple times, I do not feel that they are helpful and I am not doing them any more. Pt denies OT services at todays session and states he is not receptive to services at this time. OT recommends that pt return home when medically cleared per MD. AMPAC score 22, CMS score 25.80% Patient is assessed as a Moderate 73213 complexity based on the following: History: See Above Examination: See Above Presentation: Evolving Decision Making: AMPAC score 22, CMS score 25.80% GOALS N/A PLAN OF CARE/TREATMENT PLAN: OT consult only DISCHARGE RECOMMENDATIONS home when medically cleared per MD, pt is not receptive to serivces. TREATMENT TIME/MINUTES/CODES 36717, 25 minutes (08:25) G Codes in the area of self- : washing oneself, toileting, dressing, eating and drinking, current status GO [id number] CJ projected status GO [id number]. Discharge status (if discharging) GO [id number] Bambi Suggs, OTR/L [facility]
--- NOTE | 2018-07-26 11:54 | OTIE_ITS ---
Occupational Therapy Notes Inpatient Occupational Therapy Evaluation Date: 07/26/18 Referring Doctor:Reema Saucedo MD OT Orders: Eval and Treat Precautions: Fall Risk, Drop let Precautions, Influenza PATIENT PROFILE/ADMITTING DIAGNOSIS: Pt was admitted through the ER on 07/25/18 for influenza, hypoxia, and possible tachycardia per ER report. Pt presented to ER with an 88% O2 with questionable acute bronchitis. Past Medical History: Influenza, CAD s/p [place], hyperlipidemia, HTN, CABGx3, CVA 2007 with (L) UE/LE tone/flaccid UE, Epilepsy. Social History/Home Situation: Pt reports that he lives in [place] at times throughout the year and is moving into an apartment today with his girlfriend who has been dx with cancer. He reports that he takes care of her and that she performs the driving. He does not report the set up of his new apartment however reports that his previous level of function is (I) all ADLs/IADLs except for driving. Equipment owned/DME: Pt reports that he utilizes a cane and has grab bars in the bathroom. SUBJECTIVE: Pt was sitting in bed when OT arrived. He was agreeable to OT session but reports at the end that he is not interested in any services. OBJECTIVE: General Observation: Flaccid (L) UE, IV (R) UE Mental Status: A&Ox3 Pain: no c/o pain ROM: RUE AROM WNL L UE Flaccid, pt denies any motion of his (L) UE at all and hold arm under the blankets. STRENGTH: RUE 4-/5 throughout LUE NT BALANCE: Static sitting Good Dynamic Sitting Good SPECIAL TESTS: Daily Activity Limitations Standardized Measure [facility] AM -PAC ?6 clicks? Daily Activity Inpatient Short Form: Raw score: 22 Standardized score: 47.10 CMS score: 25.80% CMS modifier: CJ INFORMED CONSENT/EDUCATION: Pt instructed in purpose of OT Consult and plan of care. ASSESSMENT: Patient is a 58-year-old male referred to occupational therapy services with diagnosis of influenza, hypoxia, and tachycardia present in the ER on 07/25/18. Patient presents with clinical signs and symptoms consistent with dx. Pt was seen for OT consult only he was agreeable to OT session and then reported I have had services for OT/PT multiple times, I do not feel that they are helpful and I am not doing them any more. Pt denies OT services at todays session and states he is not receptive to services at this time. OT recommends that pt return home when medically cleared per MD. AMPAC score 22, CMS score 25.80% Patient is assessed as a Moderate [id number] complexity based on the following: History: See Above Examination: See Above Presentation: Evolving Decision Making: AMPAC score 22, CMS score 25.80% GOALS N/A PLAN OF CARE/TREATMENT PLAN: OT consult only DISCHARGE RECOMMENDATIONS home when medically cleared per MD, pt is not receptive to serivces. TREATMENT TIME/MINUTES/CODES 59598, 25 minutes (08:25) G Codes in the area of self- : washing oneself, toileting, dressing, eating and drinking, current status GO [id number] CJ projected status GO [id number]. Discharge status (if discharging) GO [id number] Bambi Suggs, OTR/L [facility]
[2018-07-26] MEDS: Normal Saline Flush 10 ML SYR IVP (12:08)
--- NOTE | 2018-07-26 12:21 | PT.INIE ---
Date of service: 07/26/18 Time of Service: 09:30 PT Notes Inpatient Physical Therapy Evaluation Date: 07/26/18 Referring Doctor: Dr. Reema Saucedo PT Orders: PT CONSULT: eval and treat Precautions: fall, standard Patient Profile/Admitting Diagnosis: Patient admitted 07/25/18 due to headache, vomiting and headache. He tested positive for Influenza A, and was also diagnosed with acute bronchitis and hypoxia, possibly due to COPD exacerbation. 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 He lives with his girlfriend in an apartment, and states that he is moving today. He reports that his apartment building has been sold, and his landlord has given him until tomorrow to be out of the apartment. He will be moving to another apartment in [facility]. Current Functional Limitations: Patient reports history of frequent falls related to his hemiparesis. He states that he had an AFO at some point, although has not use this in at least several months. He has been working with [employer] to obtain a new AFO. He also utilizes a cane at baseline, although states that it is in his girlfriend's car. Equipment Owned/DME: Cane Subjective: Sarmad states that he is leaving today. He reports that he has not discussed this with his doctor, although needs to move out of his apartment and plans to leave AMA if needed. He states that he feels fine, and does not anticipate participating in PT intervention. He states he has had a great deal of PT in the past and does not feel it has ever made a difference for him. He states that he falls frequently, and bumps into things all the time. Objective: General Observation: Resting in bed with IV in RUE Mental Status: A and O x3 Pain: Denies ROM: Right Upper Extremity: WFL Left Upper Extremity: Patient reports inability to move left upper extremity, and declines any isolated movements. Functionally, he is able to demonstrate shoulder flexion to 60 degrees, partial passenger car upholsterer apprentice of the left hand. Right Lower Extremity: WFL Left Lower Extremity: Hip and knee motion grossly WFL. Ankle DF allows -10 degrees with sustained clonus. Strength: Right Upper Extremity: Shoulder flexion 4/5. Biceps 3/5 (no resistance applied due to IV placement). Triceps 4-/5. Painter [place] is strong. Left Upper Extremity: Patient reports inability to move left upper extremity, but functionally demonstrates 3-/5 strength in the shoulder flexion. He also demonstrates partial passenger car upholsterer apprentice of the left hand during functional movements. Right Lower Extremity: Hip flexion 5/5. Quads 5/5. Hamstrings 4/5. Ankle dorsiflexion 5/5. Left Lower Extremity: Patient reports inability to perform active movements of the left lower extremity, however he is able to perform SLR for assisted donning of his socks. He also demonstrates hip abduction to at least 2/5, with supine hip abduction during bed mobility. He has a functional foot drop on the left. Bed Mobility/Transfers: Supine?sit: Supervision Sit?stand: Supervision Stand?sit: Supervision Bed?chair: Supervision with right hemiwalker, and assistance for management of IV pole Gait: Patient ambulates 25 feet with a right hemiwalker, contact-guard, assistance for management of IV pole. He has significant clonus of the left lower extremity and weightbearing, and demonstrates left foot drop with hemiparetic gait pattern. During ambulation he has significant flexor tone of the left upper extremity. Balance: Static Sitting: Normal Dynamic Sitting: Normal Static Standing: Good Dynamic Standing: Fair Informed Consent/Education: Patient instructed in purpose of PT consult and plan of care. Was recommended that patient participate in PT intervention both in acute care setting, and via outpatient upon discharge. Patient declines participation in formalized PT intervention at this time. Assessment: Patient is a 58 year old male referred to physical therapy services with the diagnosis of influenza A. Patient presents with clinical signs and symptoms consistent with diagnosis, on top of chronic mobility issues, with history of frequent falls. He is declining PT intervention at this time, despite recommendation for PT intervention to address his chronic issues. Patient is insistent that he will be leaving today despite recommendations from medical staff here at the hospital. I have encouraged him to seek out PT intervention by outpatient services upon discharge, which he will consider. Patient is assessed as High [id number] complexity based on the following: History: 58-year-old male admitted for medical management after diagnosis with influenza A, with chronic mobility issues related to hemiparesis. Patient admittedly has a history of frequent falls, and has significant gait impairments which are uncompensated with bracing. He has a complicated medical history, and his risk for leaving AMA. Examination: Gait impairments, history of frequent falls, rigidity in left upper extremity, left lower extremity clonus, range of motion deficits in left ankle, decreased strength Presentation: Unstable Decision Making: High complexity Plan of Care/Treatment Plan: Discharge from physical therapy services in acute care setting, as patient declines further PT intervention. DISCHARGE RECOMMENDATIONS: Home, with recommendation for outpatient PT to address chronic gait deficits and fall risk. Patient is aware of this recommendation, and declines further PT intervention at this time TREATMENT CODE/TIME: 30 minutes ([id number])
--- NOTE | 2018-07-26 12:30 | IN_ITS ---
Date of service: 07/26/18 Time of Service: 09:30 PT Notes Inpatient Physical Therapy Evaluation Date: 07/26/18 Referring Doctor: Dr. Reema Saucedo PT Orders: PT CONSULT: eval and treat Precautions: fall, standard Patient Profile/Admitting Diagnosis: Patient admitted 07/25/18 due to headache, vomiting and headache. He tested positive for Influenza A, and was also diagnosed with acute bronchitis and hypoxia, possibly due to COPD exacerbation. PMHX: COPD, with continued everyday smoking; CAD status post [place], stent and CABG x3 in 2009; hyperlipidemia; hypertension; CVA in 2007 with chronic left hemiparesis; epilepsy Social History/Home Situation: Patient has temporarily moved from [place] to [place], stating that he is helping a friend as he goes through chemotherapy. He lives with his girlfriend in an apartment, and states that he is moving today. He reports that his apartment building has been sold, and his landlord has given him until tomorrow to be out of the apartment. He will be moving to another apartment in [facility]. Current Functional Limitations: Patient reports history of frequent falls related to his hemiparesis. He states that he had an AFO at some point, although has not use this in at least several months. He has been working with [employer] to obtain a new AFO. He also utilizes a cane at baseline, although states that it is in his girlfriend's car. Equipment Owned/DME: Cane Subjective: Sarmad states that he is leaving today. He reports that he has not discussed this with his doctor, although needs to move out of his apartment and plans to leave AMA if needed. He states that he feels fine, and does not anticipate participating in PT intervention. He states he has had a great deal of PT in the past and does not feel it has ever made a difference for him. He s tates that he falls frequently, and bumps into things all the time. Objective: General Observation: Resting in bed with IV in RUE Mental Status: A and O x3 Pain: Denies ROM: Right Upper Extremity: WFL Left Upper Extremity: Patient reports inability to move left upper extremity, and declines any isolated movements. Functionally, he is able to demonstrate shoulder flexion to 60 degrees, partial onion topper of the left hand. Right Lower Extremity: WFL Left Lower Extremity: Hip and knee motion grossly WFL. Ankle DF allows -10 degrees with sustained clonus. Strength: Right Upper Extremity: Shoulder flexion 4/5. Biceps 3/5 (no resistance applied due to IV placement). Triceps 4-/5. Process Control Engineer is strong. Left Upper Extremity: Patient reports inability to move left upper extremity, but functionally demonstrates 3-/5 strength in the shoulder flexion. He also demonstrates partial onion topper of the left hand during functional movements. Right Lower Extremity: Hip flexion 5/5. Quads 5/5. Hamstrings 4/5. Ankle dorsiflexion 5/5. Left Lower Extremity: Patient reports inability to perform active movements of the left lower extremity, however he is able to perform SLR for assisted donning of his socks. He also demonstrates hip abduction to at least 2/5, with supine hip abduction during bed mobility. He has a functional foot drop on the left. Bed Mobility/Transfers: Supine?sit: Supervision Sit?stand: Supervision Stand?sit: Supervision Bed?chair: Supervision with right hemiwalker, and assistance for management of IV pole Gait: Patient ambulates 25 feet with a right hemiwalker, contact-guard, assistance for management of IV pole. He has significant clonus of the left lower extremity and weightbearing, and demonstrates left foot drop with hemiparetic gait pattern. During ambulation he has significant flexor tone of the left upper extremity. Balance: Static Sitting: Normal Dynamic Sitting: Normal Static Standing: Good Dynamic Standing: Fair Informed Consent/Education: Patient instructed in purpose of PT consult and plan of care. Was recommended that patient participate in PT intervention both in acute care setting, and via outpatient upon discharge. Patient declines participation in formalized PT intervention at this time. Assessment: Patient is a 58 year old male referred to physical therapy services with the diagnosis of influenza A. Patient presents with clinical signs and symptoms consistent with diagnosis, on top of chronic mobility issues, with history of frequent falls. He is declining PT intervention at this time, despite recommendation for PT intervention to address his chronic issues. Patient is insistent that he will be leaving today despite recommendations from medical staff here at the hospital. I have encouraged him to seek out PT intervention by outpatient services upon discharge, which he will consider. Patient is assessed as High [id number] complexity based on the following: History: 58-year-old male admitted for medical management after diagnosis with influenza A, with chronic mobility issues related to hemiparesis. Patient admittedly has a history of frequent falls, and has significant gait impairments which are uncompensated with bracing. He has a complicated medical history, and his risk for leaving AMA. Examination: Gait impairments, history of frequent falls, rigidity in left upper extremity, left lower extremity clonus, range of motion deficits in left ankle, decreased strength Presentation: Unstable Decision Making: High complexity Plan of Care/Treatment Plan: Discharge from physical therapy services in acute care setting, as patient declines further PT intervention. DISCHARGE RECOMMENDATIONS: Home, with recommendation for outpatient PT to address chronic gait deficits and fall risk. Patient is aware of this recommendation, and declines further PT intervention at this time TREATMENT CODE/TIME: 30 minutes ([id number])
[2018-07-26 15:12] LABS: Troponin I 0.75 ng/mL (0.00-0.06)
[2018-07-26] MEDS: Nicotine 21 MG/24 HR PATCH TD (15:22)
[2018-07-26] MEDS: Enoxaparin 80 MG/0.8 ML SYR SC (15:44)
[2018-07-26] MEDS: Aspirin E.C. 325 MG TABEC PO (15:45)
[2018-07-26 15:55] LABS: Troponin I 0.02 ng/mL (0.00-0.06)
--- NOTE | 2018-07-26 16:06 | NUR.NOTE ---
Nursing Note: patients troponin came back at 0.75, he was given aspirin enoxaparin, and put on telemetry
--- NOTE | 2018-07-26 16:42 | W.PM.DS.N ---
Date of service: 07/26/18 Time of Service: 16:42 DS: Diagnosis Discharge Diagnosis (1) NSTEMI (non-ST elevated myocardial infarction): Status: Acute (2) Influenza A: Status: Acute (3) Acute bronchitis: Status: Acute (4) Hypoxia: Status: Acute (5) Acute exacerbation of chronic obstructive pulmonary disease (COPD): Status: Suspected (6) Dehydration: Status: Acute (7) CAD (coronary artery disease): Status: Chronic (8) Hyperlipidemia: Status: Acute (9) Hypertension: Status: Chronic (10) Ambulatory dysfunction: Status: Acute Discharge Plan Disposition Patient Disposition: [facility] Condition: Serious Discharge Details Reason For Visit: INFLUENZA A, ACUTE BRONCHITIS/COPD,HYPOXIA Admit Date/Time: 07/25/18 12:36 Admit Provider: Reema Saucedo Attending Provider: Reema Saucedo Primary Care Provider: None,None Hospital Course Hospital Course: Mr Gil is a 58 year old male with PMHx of CAD s/p IA/stent in 1997 and CABG x 3 in 2009 (in [place]), as well as prior CVA with residual L-sided weakness, hypertension, hyperlipidemia, who has an about 80 pack-year smoking history and continues to smoke, who was admitted to [facility] on 07/25/18 with an acute exacerbation of likely COPD (previously not diagnosed) due to Influenza A infection. He was initially mildly hypoxic, but this has quickly resolved. He was initiated on IV antibiotics for suspected bacterial bronchitis component of his presentation (azithromycin, rocephin, currently on Day 2), tamiflu, IV solumedrol, nebs. From the respiratory stand point, the patient improved rapidly - however, he reported an episode of lung pain to nursing this morning soon after receiving a nebulizer treatment. The patient now admits to also having an episode of this pain last night. His EKG reveals a RBBB with no priors available for comparison in our system. His troponin this morning was 0.02. His troponin rechecked at 14:45 is now 0.75. The patient is now chest pain free. He was loaded with asa, therapeutic lovenox. Case was discussed with [facility] cardiology, who recommended that the patient also be loaded with plavix. He was accepted in transfer by [facility] cardiology Dr Azar for anticipated cardiac cath. We appreciate the help of our [facility] colleagues and wish the patient well! Home Meds and New Rx's Prescriptions: New acetaminophen [Tylenol] 325 mg Tablet 650 mg PO Q4H PRN PRNQty: 0 RF: 0 ipratropium-albuterol 0.5 mg-3 mg(2.5 mg base)/3 mL Solution For Nebulization 3 ml UPD Q6H Qty: 0 RF: 0 albuterol sulfate 2.5 mg /3 mL (0.083 %) Solution For Nebulization 2.5 mg UPD Q2H PRN PRNQty: 0 RF: 0 benzonatate 100 mg Capsule 100 mg PO TID Qty: 0 RF: 0 azithromycin [Zithromax] 500 mg Recon Soln 500 mg IVPB Q24H Qty: 0 RF: 0 polyethylene glycol 3350 17 gram Powder In Packet 17 g PO DAILY PRN PRN (Reason: Constipation) Qty: 0 RF: 0 pantoprazole 40 mg Tablet,Delayed Release (Dr/Ec) 40 mg PO DAILY@0730 Qty: 0 RF: 0 oseltamivir [Tamiflu] 75 mg Capsule 75 mg PO BID Qty: 0 RF: 0 nicotine 21 mg/24 hr Patch 24 Hour 21 mg Transdermal DAILY Qty: 0 RF: 0 docusate sodium [Colace] 100 mg Capsule 100 mg PO TID PRN PRNQty: 0 RF: 0 alum-mag hydroxide-simeth [Mag-Al Plus] 200-200-20 mg/5 mL Suspension 30 ml PO Q2H PRN PRNQty: 0 RF: 0 enoxaparin 80 mg/0.8 mL Syringe 80 mg subcut Q12H Qty: 0 RF: 0 Solu-Medrol (PF) 125 mg/2 mL Recon Soln 60 mg IVP BID Qty: 0 RF: 0 guaifenesin [Mucinex] 600 mg Tablet Extended Release 12hr 600 mg PO BID Qty: 0 RF: 0 Continued aspirin 81 mg Tablet,Chewable 1 tab PO DAILY RF: 0 pramipexole 0.75 mg Tablet 0.75 mg PO HS RF: 0 atorvastatin 80 mg Tablet 80 mg PO HS RF: 0 sertraline 100 mg Tablet 200 mg PO DAILY RF: 0 metoprolol tartrate [Lopressor] 50 mg Tablet 50 mg PO BID RF: 0 gabapentin 300 mg Capsule 300 mg PO TID RF: 0 baclofen 20 mg Tablet 20 mg PO TID RF: 0 Discharge Instructions Instructions: Acute Coronary Syndrome (DC), Influenza (DC), Acute Bronchitis (GEN), COPD (Chronic Obstructive Pulmonary Disease) (DC) Additional Instructions: You must stop smoking! Stand Alone Forms: Nursing Discharge Form Referrals: Giovana Brothers [ NON-[facility] STAFF PHYSICIAN] - 08/11/18 10:15 am Activity:: bedrest Diet:: NPO Discharge Orders Discharge Orders: Discharge Order (Routine); Ordered 07/26/18 Ordered By: Reema Saucedo Exam Narrative Exam Narrative: General: Middle aged male, appears ill and older than his stated age, laying in bed, not wearing O2, not tachypneic, not having respiratory difficulties Neurological: A&Ox3, LUE/LLE deficits and L facial weakness; no acute deficits Psychiatric: appropriate speech pattern/content Skin: no bruises/rashes; intact HEENT: EOMI, dry MM, clear oropharynx, no submandibular or cervical lymphadenopathy. No goiter or JVD Cardiovascular: RRR, no m/r/g Lungs: Wheezing on expiration B - much improved from yesterday Gastrointestinal: abdomen soft, nontender, nondistended Genitourinary: deferred Extremities: no edema, clubbing, or cyanosis. B feet warm. +1 B pedal pulses. DS: Data Vitals/I&O Vitals and I&O: Vital Signs Temperature 36.8 C 07/26/18 16:16 Temperature Source Tympanic 07/26/18 16:16 Pulse 72 07/26/18 16:16 Pulse Rhythm Regular 07/26/18 09:07 Respiratory Rate 18 07/26/18 16:16 Respiratory Effort 07/26/18 09:07 Respiratory Depth Normal 07/26/18 09:07 Respiratory Pattern Normal 07/26/18 09:07 Blood Pressure 113/68 07/26/18 16:16 Blood Pressure Mean 68 07/25/18 12:45 Pulse Oximetry 94 L 07/26/18 16:16 Oxygen Delivery Method Room Air 07/26/18 16:16 Oxygen Flow Rate 0 07/26/18 16:16 Pain Level 6 07/26/18 07:34 Comment 07/25/18 18:44 Intake & Output 07/25/18 07/26/1807/26/19 23:59 11:59 23:59 Intake Total 300 / 300 2252.5 / 2542.5 290 / 2542.5 Output Total 1175 / 1175 1200 / 1200 Balance -875 / -875 1052.5 / 1342.5 290 / 1342.5 Weight 170 kg 76.5 kg Intake: IV 300 / 300 1852.5 / 1902.5 50 / 1902.5 Oral 400 / 640 240 / 640 Output: Urine 1175 / 1175 1200 / 1200 Other: Urine Color Yellow Light Rachelle Urine Appearance Clear Clear Urine Odor None Strong Comment mixed continence 400 was measured, underwear, and pad and lohnny were soaked with inc Voiding Methods Bedside Commode Bedside Commode Incontinent Pending studies at discharge: CXR 07/25/18: No acute abnormality. EKG 07/26/18: Sinus tach, RBBB, HR 101, no prior EKG's for comparison Labs on day of discharge: Labs from last 24 hours 07/26/18 07/26/18 07/26/18 14:35 06:30 06:30 WBC 5.16 RBC 4.20 L Hgb 13.4 L Hct 40.0 MCV 95.2 H MCH 31.9 MCHC 33.5 RDW 13.0 Plt Count 93 L MPV 10.0 Immature Gran % 0.2 Neutrophils % 87.4 Lymphocytes % 9.9 Monocytes % 2.5 Eosinophils % 0.0 Basophils % 0.0 Absolute Neutrophils 4.51 Absolute Lymphocytes 0.51 L Absolute Monocytes 0.13 Absolute Eosinophils 0.00 Absolute Basophils 0.00 Sodium 144 Potassium 3.5 Chloride 108 H Carbon Dioxide 23.7 Anion Gap 12.3 H BUN 17 Creatinine 1.08 Estimated GFR/1.73 m2 >= 60.00 Glucose 149 H Calcium 8.5 Magnesium 1.6 L Troponin I 0.75 H 0.02 Preliminary micro results at discharge 07/25/18 12:53 Blood Culture - Preliminary Blood NO GROWTH 24 HOURS 07/25/18 11:25 Blood Culture - Preliminary Blood NO GROWTH 24 HOURS PFSH Medical History Ambulatory dysfunction (Chronic) CAD (coronary artery disease) (Chronic) CVA (cerebral vascular accident) (Chronic) Carotid stenosis (Chronic) Epilepsy (Chronic) History of heart attack (Chronic) Hypertension (Chronic) Tobacco abuse (Chronic) Surgical History H/O colonoscopy (Chronic) History of cardiac cath (Chronic) History of left-sided carotid endarterectomy (Chronic) Hx of tonsillectomy (Chronic) S/P CABG x 3 (Chronic) Social History Smoking/Tobacco Use Status: Current every day tobacco type: cigarettes quit status: not considering quitting counseling given: provider counseling alcohol intake: never substance use type: does not use
--- NOTE | 2018-07-26 16:49 | DSE_ITS ---
Date of service: 07/26/18 Time of Service: 16:42 DS: Diagnosis Discharge Diagnosis (1) NSTEMI (non-ST elevated myocardial infarction): Status: Acute (2) Influenza A: Status: Acute (3) Acute bronchitis: Status: Acute (4) Hypoxia: Status: Acute (5) Acute exacerbation of chronic obstructive pulmonary disease (COPD): Status: Suspected (6) Dehydration: Status: Acute (7) CAD (coronary artery disease): Status: Chronic (8) Hyperlipidemia: Status: Acute (9) Hypertension: Status: Chronic (10) Ambulatory dysfunction: Status: Acute Discharge Plan Disposition Patient Disposition: [facility] Condition: Serious Discharge Details Reason For Visit: INFLUENZA A, ACUTE BRONCHITIS/COPD,HYPOXIA Admit Date/Time: 07/25/18 12:36 Admit Provider: Reema Saucedo Attending Provider: Reema Saucedo Primary Care Provider: None,None Hospital Course Hospital Course: Mr Gil is a 58 year old male with PMHx of CAD s/p MO/stent in 1997 and CABG x 3 in 2009 (in [place]), as well as prior CVA with residual L-sided weakness, hypertension, hyperlipidemia, who has an about 80 pack-year smoking history and continues to smoke, who was admitted to [facility] on 07/25/18 with an acute exacerbation of likely COPD (previously not diagnosed) due to Influenza A infection. He was initially mildly hypoxic, but this has quickly resolved. He was initiated on IV antibiotics for suspected bacterial bronchitis component of his presentation (azithromycin, rocephin, currently on Day 2), tamiflu, IV solumedrol, nebs. From the respiratory stand point, the patient improved rapidly - however, he reported an episode of lung pain to nursing this morning soon after receiving a nebulizer treatment. The patient now admits to also having an episode of this pain last night. His EKG reveals a RBBB with no priors available for comparison in our system. His troponin this morning was 0.02. His troponin rechecked at 14:45 is now 0.75. The patient is now chest pain free. He was l oaded with asa, therapeutic lovenox. Case was discussed with [facility] cardiology, who recommended that the patient also be loaded with plavix. He was accepted in transfer by [facility] cardiology Dr Azar for anticipated cardiac cath. We appreciate the help of our [facility] colleagues and wish the patient well! Home Meds and New Rx's Prescriptions: New acetaminophen [Tylenol] 325 mg Tablet 650 mg PO Q4H PRN PRNQty: 0 RF: 0 ipratropium-albuterol 0.5 mg-3 mg(2.5 mg base)/3 mL Solution For Nebulization 3 ml UPD Q6H Qty: 0 RF: 0 albuterol sulfate 2.5 mg /3 mL (0.083 %) Solution For Nebulization 2.5 mg UPD Q2H PRN PRNQty: 0 RF: 0 benzonatate 100 mg Capsule 100 mg PO TID Qty: 0 RF: 0 azithromycin [Zithromax] 500 mg Recon Soln 500 mg IVPB Q24H Qty: 0 RF: 0 polyethylene glycol 3350 17 gram Powder In Packet 17 g PO DAILY PRN PRN (Reason: Constipation) Qty: 0 RF: 0 pantoprazole 40 mg Tablet,Delayed Release (Dr/Ec) 40 mg PO DAILY@0730 Qty: 0 RF: 0 oseltamivir [Tamiflu] 75 mg Capsule 75 mg PO BID Qty: 0 RF: 0 nicotine 21 mg/24 hr Patch 24 Hour 21 mg Transdermal DAILY Qty: 0 RF: 0 docusate sodium [Colace] 100 mg Capsule 100 mg PO TID PRN PRNQty: 0 RF: 0 alum-mag hydroxide-simeth [Mag-Al Plus] 200-200-20 mg/5 mL Suspension 30 ml PO Q2H PRN PRNQty: 0 RF: 0 enoxaparin 80 mg/0.8 mL Syringe 80 mg subcut Q12H Qty: 0 RF: 0 Solu-Medrol (PF) 125 mg/2 mL Recon Soln 60 mg IVP BID Qty: 0 RF: 0 guaifenesin [Mucinex] 600 mg Tablet Extended Release 12hr 600 mg PO BID Qty: 0 RF: 0 Continued aspirin 81 mg Tablet,Chewable 1 tab PO DAILY RF: 0 pramipexole 0.75 mg Tablet 0.75 mg PO HS RF: 0 atorvastatin 80 mg Tablet 80 mg PO HS RF: 0 sertraline 100 mg Tablet 200 mg PO DAILY RF: 0 metoprolol tartrate [Lopressor] 50 mg Tablet 50 mg PO BID RF: 0 gabapentin 300 mg Capsule 300 mg PO TID RF: 0 baclofen 20 mg Tablet 20 mg PO TID RF: 0 Discharge Instructions Instructions: Acute Coronary Syndrome (DC), Influenza (DC), Acute Bronchitis (GEN), COPD (Chronic Obstructive Pulmonary Disease) (DC) Additional Instructions: You must stop smoking! Stand Alone Forms: Nursing Discharge Form Referrals: Giovana Brothers [ NON-[facility] STAFF PHYSICIAN] - 08/11/18 10:15 am Activity:: bedrest Diet:: NPO Discharge Orders Discharge Orders: Discharge Order (Routine); Ordered 07/26/18 Ordered By: Reema Saucedo Exam Narrative Exam Narrative: General: Middle aged male, appears ill and older than his stated age, laying in bed, not wearing O2, not tachypneic, not having respiratory difficulties Neurological: A&Ox3, LUE/LLE deficits and L facial weakness; no acute deficits Psychiatric: appropriate speech pattern/content Skin: no bruises/rashes; intact HEENT: EOMI, dry MM, clear oropharynx, no submandibular or cervical lymphadenopathy. No goiter or JVD Cardiovascular: RRR, no m/r/g Lungs: Wheezing on expiration B - much improved from yesterday Gastrointestinal: abdomen soft, nontender, nondistended Genitourinary: deferred Extremities: no edema, clubbing, or cyanosis. B feet warm. +1 B pedal pulses. DS: Data Vitals/I&O Vitals and I&O: Vital Signs Temperature 36.8 C 07/26/18 16:16 Temperature Source Tympanic 07/26/18 16:16 Pulse 72 07/26/18 16:16 Pulse Rhythm Regular 07/26/18 09:07 Respiratory Rate 18 07/26/18 16:16 Respiratory Effort 07/26/18 09:07 Respiratory Depth Normal 07/26/18 09:07 Respiratory Pattern Normal 07/26/18 09:07 Blood Pressure 113/68 07/26/18 16:16 Blood Pressure Mean 68 07/25/18 12:45 Pulse Oximetry 94 L 07/26/18 16:16 Oxygen Delivery Method Room Air 07/26/18 16:16 Oxygen Flow Rate 0 07/26/18 16:16 Pain Level 6 07/26/18 07:34 Comment 07/25/18 18:44 Intake & Output 0207/26/18 07/26/18 23:59 11:59 23:59 Intake Total 300 / 300 2252.5 / 2542.5 290 / 2542.5 Output Total 1175 / 1175 1200 / 1200 Balance -875 / -875 1052.5 / 1342.5 290 / 1342.5 Weight 170 kg 76.5 kg Intake: IV 300 / 300 1852.5 / 1902.5 50 / 1902.5 Oral 400 / 640 240 / 640 Output: Urine 1175 / 1175 1200 / 1200 Other: Urine Color Yellow Light Rachelle Urine Appearance Clear Clear Urine Odor None Strong Comment mixed continence 400 was measured, underwear, and pad and lohnny were soaked with inc Voiding Methods Bedside Commode Bedside Commode Incontinent Pending studies at discharge: CXR 07/25/18: No acute abnormality. EKG 07/26/18: Sinus tach, RBBB, HR 101, no prior EKG's for comparison Labs on day of discharge: Labs from last 24 hours 07/26/18 07/26/18 07/26/18 14:35 06:30 06:30 WBC 5.16 RBC 4.20 L Hgb 13.4 L Hct 40.0 MCV 95.2 H MCH 31.9 MCHC 33.5 RDW 13.0 Plt Count 93 L MPV 10.0 Immature Gran % 0.2 Neutrophils % 87.4 Lymphocytes % 9.9 Monocytes % 2.5 Eosinophils % 0.0 Basophils % 0.0 Absolute Neutrophils 4.51 Absolute Lymphocytes 0.51 L Absolute Monocytes 0.13 Absolute Eosinophils 0.00 Absolute Basophils 0.00 Sodium 144 Potassium 3.5 Chloride 108 H Carbon Dioxide 23.7 Anion Gap 12.3 H BUN 17 Creatinine 1.08 Estimated GFR/1.73 m2 >= 60.00 Glucose 149 H Calcium 8.5 Magnesium 1.6 L Troponin I 0.75 H 0.02 Preliminary micro results at discharge 07/25/18 12:53 Blood Culture - Preliminary Blood NO GROWTH 24 HOURS 07/25/18 11:25 Blood Culture - Preliminary Blood NO GROWTH 24 HOURS PFSH Medical History Ambulatory dysfunction (Chronic) CAD (coronary artery disease) (Chronic) CVA (cerebral vascular accident) (Chronic) Carotid stenosis (Chronic) Epilepsy (Chronic) History of heart attack (Chronic) Hypertension (Chronic) Tobacco abuse (Chronic) Surgical History H/O colonoscopy (Chronic) History of cardiac cath (Chronic) History of left-sided carotid endarterectomy (Chronic) Hx of tonsillectomy (Chronic) S/P CABG x 3 (Chronic) Social History Smoking/Tobacco Use Status: Current every day tobacco type: cigarettes quit status: not considering quitting counseling given: provider counseling alcohol intake: never substance use type: does not use
[2018-07-26] MEDS: Clopidogrel 300 MG TAB PO (17:37)
[2018-07-26] MEDS: AZITHROMYCIN 500 MG in Normal Saline 250 ML 250 MG IVPB (17:37)
--- NOTE | 2018-07-26 18:03 | INITIAL_ITS ---
Care Management Initial Assess REASON FOR HOSPITALIZATION:: Influenza A, Acute Bronchitis/COPD, Hypoxia PAST MEDICAL HISTORY/PAST SURGICAL HISTORY:: Ambulatory dysfunction, CAD, Carotid stenosis, CVA with residual LUE/LLE deficit, Epilepsy, history of heart attack, hypertension, hyperlipidemia, tobacco abuse, colonscopy, cardiac cath, left sided carotid endarterectomy, tonsillectomy, CABGx3 PREVIOUS FUNCTIONAL STATUS/SOCIAL/FAMILY SUPPORTS:: Sarmad is currently relocating to [place] from [place] to help his significant other, June who is undergoing chemotherapy. He reports he no longer drives due to a stroke and is on disability income and currently unemployed. Sarmad shares his family and support system is all in [place], including two children and two grandchildren which he reports not seeing often, but speaking to on the phone. Sarmad reports June provides transportation, he is independent with all other ADLs. CURRENT FUNCTIONAL STATUS:: Saramd was lying in bed, agreeable to CM meeting, he was pleasant in interaction and forthcoming with information. CM met with Sarmad again at RN request; Sarmad is requesting to leave AMA- left for June and provided patient information regarding AMA departure to support informed decision making and encouraged Sarmad to remain at [facility]. After CM spoke with June, Sarmad agreed to stay until MD discharged him. He was agreeable to Nicotene replacement as well; June reported Sarmad smokes 2PPD-Sarmad was provided a patch by Dr. Saucedo. ADVANCE DIRECTIVES:: None on file at [facility]. Has patient been provided with information about the portal?: Yes Did the patient sign up for the portal?: Yes ([email or web address]) CODE STATUS:: Full Code INSURANCE COVERAGE / FINANCIAL ISSUES:: Medicare CURRENT HOME/COMMUNITY SERVICES/EQUIPMENT:: Sarmad reports having only a cane. PRIMARY CARE PHYSICIAN:: Giovana Brothers; [facility] store loss prevention manager--coordinated by Sausage Inspector for follow up. POTENTIAL DISCHARGE NEEDS:: PCP assignment. PATIENT/FAMILY EDUCATION NEEDS:: Review discharge instructions, discuss Ask Me Three. AMA departure-issues with prescriptions, follow-up, etc. ANTICIPATED BARRIERS TO DISCHARGE:: AMA: Sarmad threatened to leave AMA; was able to de-escalate and remain at [facility] currently. TRANSPORTATION:: Via private vehicle. PLAN:: Sarmad will return home when ready per MD. He will be offered new PCP for follow up and transport via private vehicle with a friend. No additional services anticipated at this time.
== END 2018-07-26 18:50 | disposition short-term general hospital (02) | DRG 193 ==
LOC: ER 12:51 → MS 13:16
PROVIDERS: Admitting Provider Internal Medicine; Emergency Provider Nurse Practitioner Family; Visit Provider Internal Medicine
DX: J10.1 Influenza due to other identified influenza virus with other respiratory manifestations (principal); I21.4 Non-ST elevation (NSTEMI) myocardial infarction; J44.1 Chronic obstructive pulmonary disease with (acute) exacerbation; J44.0 Chronic obstructive pulmonary disease with (acute) lower respiratory infection; I69.354 Hemiplegia and hemiparesis following cerebral infarction affecting left non-dominant side; F17.210 Nicotine dependence, cigarettes, uncomplicated; R09.02 Hypoxemia; I25.10 Atherosclerotic heart disease of native coronary artery without angina pectoris; I10 Essential (primary) hypertension; E86.0 Dehydration; E78.5 Hyperlipidemia, unspecified; I25.2 Old myocardial infarction; Z95.1 Presence of aortocoronary bypass graft
CPT/HCPCS: 36410; 36415; 80048; 80053; 87040; 87449; 94640; 96361; 96374; 97163; 97166; 99223; 99239; 99285; J1650; 71046; 83735; 84484; 85025; 93005; 93010; J0456; J0696; J2930; J7613; J7620

== ENCOUNTER 2018-08-11 13:45 | Outpatient (REF) | payer OTHER, SELFPAY ==
[2018-08-11 22:01] LABS: ALT 35 U/L (12-78); AST 27 U/L (15-37); Albumin 3.9 g/dL (3.4-5.0); Alkaline Phosphatase 62 U/L (46-116); BUN 9 mg/dL (7-18); Bilirubin, Total 0.6 mg/dL (0.2-1.0); CREATININE 0.71 mg/dL (0.70-1.30); Calcium 9.1 mg/dL (8.5-10.1); Chloride 105 mmol/L (98-107); Glucose 81 mg/dL (70-100); Potassium 4.2 mmol/L (3.5-5.1); Sodium 142 mmol/L (136-145); Total Protein 7.4 g/dL (6.4-8.2)
== END 2018-08-11 14:05 ==
LOC: NCHCN 13:45
PROVIDERS: PCP Nurse Practitioner; Visit Provider Nurse Practitioner
DX: I70.8 Atherosclerosis of other arteries (principal)
CPT/HCPCS: 80053

== ENCOUNTER 2018-08-24 01:22 | Outpatient (CLI) | payer OTHER, SELFPAY ==
--- NOTE | 2018-08-24 13:56 | DI.US_ITS ---
SYMPTOMS/DIAGNOSIS: CAROTID ATHEROSCLEROSIS, I70.8, S/P LEFT ENDARTERECTOMY CAROTID ULTRASOUND: Routine examination was performed. On the right, there is calcific plaque involving the common carotid, the carotid bulb and the internal carotid arteries. No hemodynamically significant velocity elevations are present. The right vertebral artery is antegrade. On the left, there is intimal thickening seen in the proximal internal carotid artery. No hemodynamically significant velocity elevations are seen in the internal carotid artery. There is elevation of the velocity seen in the external carotid artery, suggesting mild to moderate stenosis. The left vertebral artery is antegrade. IMPRESSION: No hemodynamically significant cervical internal carotid artery stenosis.
== END 2018-08-24 01:42 ==
PROVIDERS: PCP Nurse Practitioner; Visit Provider Nurse Practitioner
DX: I70.8 Atherosclerosis of other arteries (principal); Z98.890 Other specified postprocedural states
CPT/HCPCS: 93880

== ENCOUNTER 2018-09-05 02:03 | Outpatient (CLI) | payer OTHER, SELFPAY ==
[2018-09-05] MEDS: Albuterol HFA 18 GM 200 PUFF INH IH (10:34)
[2018-09-05] MEDS: Inhaler, Assist Device 1 EACH MC (10:34)
--- NOTE | 2018-09-05 16:53 | PFT_ITS ---
PULMONARY FUNCTION TEST REPORT DATE OF SERVICE: September 05, 2018 REQUESTING PROVIDER: Giovana Brothers N.P. Spirometry shows mild obstructive airways disease with no significant bronchodilator response. Lung volumes show mild restriction. Diffusion capacity normal. Airways resistance normal. IMPRESSION: Combination of mild obstructive airways disease with no significant bronchodilator response and mild restrictive pattern. Clinical correlation recommended. NICHOLE/keke D/
== END 2018-09-05 02:23 ==
PROVIDERS: PCP Nurse Practitioner; Visit Provider Nurse Practitioner
DX: J44.9 Chronic obstructive pulmonary disease, unspecified (principal)
CPT/HCPCS: 94060; 94150; 94726; 94729

== ENCOUNTER 2018-09-26 13:03 | Outpatient (REF) | payer OTHER, SELFPAY ==
[2018-09-26 21:57] LABS: Magnesium 1.6 mg/dL (1.8-2.4); Vitamin B12 289 pg/mL (193-986)
== END 2018-09-26 13:23 ==
LOC: NCHCN 13:03
PROVIDERS: PCP Nurse Practitioner; Visit Provider Nurse Practitioner
DX: R20.8 Other disturbances of skin sensation (principal)
CPT/HCPCS: 82607; 83735

== ENCOUNTER 2018-10-06 09:19 | Outpatient (REF) | payer OTHER, SELFPAY ==
[2018-10-06 13:02] LABS: Magnesium 2.1 mg/dL (1.8-2.4)
== END 2018-10-06 09:39 ==
LOC: NCHCN 09:19
PROVIDERS: PCP Nurse Practitioner; Visit Provider Family Medicine
DX: E61.2 Magnesium deficiency (principal)
CPT/HCPCS: 83735

== ENCOUNTER 2019-10-20 14:47 | Outpatient (REF) | payer OTHER, SELFPAY ==
[2019-10-20 21:23] LABS: Absolute Basophil Count 0.01 k/cumm (0.0-0.2); Absolute Eosinophil Count 0.11 k/cumm (0.0-0.7); Absolute Lymphocyte Count 2.15 k/cumm (1.2-3.4); Absolute Monocyte Count 0.45 k/cumm (0.11-0.7); Absolute Neutrophil Count 3.35 k/cumm (1.2-6.7); Basophils % 0.2; Eosinophils % 1.8; HCT 44.8 % (40.0-50.0); Lymphocytes % 35.4; Mean Corp. HGB Concentration 33.5 g/dL (32.0-36.0); Mean Corpuscular Hemoglobin 31.3 pg (27.0-33.0); Mean Corpuscular Volume 93.5 fL (80-95); Mean Platelet Volume 10.3 fL (8.0-11.0); Monocytes % 7.4; Neutrophils % 55.2; Platelet Count 199 x1000/uL (130-400); RBC 4.79 m/cumm (4.50-6.00); RBC Distribution Width 12.5 % (11.8-14.1); White Blood Cell Count 6.07 k/cumm (4.4-10.8)
[2019-10-20 22:10] LABS: BUN 14 mg/dL (7-18); CREATININE 1.16 mg/dL (0.70-1.30); Glucose 110 mg/dL (74-106)
[2019-10-20 22:11] LABS: ALT 36 U/L (16-63); AST 28 U/L (15-37); Albumin 3.8 g/dL (3.4-5.0); Alkaline Phosphatase 64 U/L (46-116); Anion Gap 8.6 mmol/L (3-11); Bilirubin, Total 0.5 mg/dL (0.2-1.0); CO2 28.4 mmol/L (21.0-32.0); Chloride 104 mmol/L (98-107); Potassium 3.8 mmol/L (3.5-5.1); Sodium 141 mmol/L (136-145); TSH (W/Ref FT4) 0.53 uIU/mL (0.36-3.74)
[2019-10-23 09:50] LABS: PSA, Screening 1.1 ng/mL (0.0-3.5)
[2019-10-25 17:46] LABS: Testosterone, Free 7.34 ng/dL (3.87-14.7); Testosterone, Total 367 ng/dL (240-950)
== END 2019-10-20 15:07 ==
LOC: NCHCN 14:47
PROVIDERS: PCP Family Medicine; Visit Provider Family Medicine
DX: R61 Generalized hyperhidrosis (principal); Z12.5 Encounter for screening for malignant neoplasm of prostate
CPT/HCPCS: 80053; 84153; 84402; 84403; 84443; 85025

== ENCOUNTER 2019-12-07 03:35 | Outpatient (CLI) | payer OTHER, SELFPAY ==
--- NOTE | 2019-12-07 10:18 | DI.RAD_ITS ---
EXAM: XR LUMBAR SPINE COMPLETE CLINICAL HISTORY: LOW BACK PAIN, M54.5. TECHNIQUE: 2D digital imaging was performed. COMPARISON: No exams were available for comparison FINDINGS: BONES: No fracture or destructive lesion. Vertebral bodies are well maintained in height. Small endp late osteophytes are seen throughout. DISKS: The L1-2 and L5-S1 disc spaces are well maintained. There is mild narrowing of the L2-3 throu gh L4-5 disc spaces. Facet degenerative changes are seen throughout. The SI joints are unremarkab le. ALIGNMENT: Lumbar spinal alignment is within normal limits. SOFT TISSUE: Calcified aorta and iliac arteries. No aneurysm is visible. IMPRESSION: Degenerative disc changes and facet degenerative changes. DATA REPOSITORY: RADIATION DOSE DELIVERED:
--- NOTE | 2019-12-07 10:18 | DI.RAD_ITS ---
EXAM: XR CHEST 2V PA LATERAL CLINICAL HISTORY: COPD, J44.9, CHRONIC LOW BACK PAIN, M54.5 TECHNIQUE: 2D digital imaging was performed. COMPARISON: CR XR CHEST 2V PA LATERAL from 07/25/2018 FINDINGS: MEDIASTINUM: Sternal wires. S/P CABG HEART: Normal size. PULMONARY VASCULATURE: Normal. LUNGS: Clear. PLEURAL SPACE: No pleural effusion or pneumothorax. BONE:Degenerative changes in the thoracic spine. IMPRESSION: No acute pulmonary findings. DATA REPOSITORY: RADIATION DOSE DELIVERED:
== END 2019-12-07 03:55 ==
PROVIDERS: PCP Family Medicine; Visit Provider Physician Assistant
DX: R05 Cough (principal); J44.9 Chronic obstructive pulmonary disease, unspecified; M54.5 Low back pain; G89.29 Other chronic pain; Z95.1 Presence of aortocoronary bypass graft; M51.36 Other intervertebral disc degeneration, lumbar region; M47.816 Spondylosis without myelopathy or radiculopathy, lumbar region
CPT/HCPCS: 71046; 72110